=== PATIENT | female | born 1955 | race African-American/Black ===

== ENCOUNTER 2020-12-13 15:43 | Inpatient (IN) | payer MEDICAID, MEDICARE ==
[~2020-12-13] VITALS: Ht 160 cm; Wt 182.4 kg
[2020-12-13 15:48] VITALS: BP_SYST 142
[2020-12-13] MEDS ORDERED: MORPHINE 2 MG/ML INJ. SYRINGE IVP ONE (17:45)
[2020-12-13 19:54] LABS: BASOPHILS % (AUTO) 0.5 % (0.0-2.0); EOSINOPHILS # (AUTO) 0.1 K/uL (0.0-0.4); EOSINOPHILS % (AUTO) 1.5 % (0.0-4.0); HEMATOCRIT 29.9 % (36-48); HEMOGLOBIN 9.5 g/dL (12.0-16.0); LYMPHOCYTES # (AUTO) 0.2 K/uL (1.0-5.5); LYMPHOCYTES % (AUTO) 3.1 % (20.5-51.5); MEAN CORPUSCULAR HEMOGLOBIN 26 pg (27-31); MEAN CORPUSCULAR HGB CONC 32 % (32-36); MEAN CORPUSCULAR VOLUME 83 fL (79.0-98.0); MONOCYTES # (AUTO) 0.7 K/uL (0.0-1.0); NEUTROPHILS # (AUTO) 6.6 K/uL (1.8-7.7); NEUTROPHILS % (AUTO) 85.9 % (40.0-70.0); PLATELET COUNT (AUTO) 241 K/uL (130-430); RED BLOOD CELL COUNT(AUTO) 3.63 MIL/uL (4.2-6.2); RED CELL DISTRIBUTION WIDTH 21.3 % (9.0-15.0); WHITE BLOOD COUNT (AUTO) 7.7 K/uL (4.8-10.8)
[2020-12-13 20:15] LABS: ANION GAP 5 (5-15); CALCIUM 9.5 mg/dL (8.4-11.0); CHLORIDE 100 mmol/L (98-107); CREATININE 1.16 mg/dL (0.55-1.30); GLUCOSE 104 mg/dL (70-99); SODIUM SERUM 145 mmol/L (136-145); UREA NITROGEN, BLOOD 16 mg/dL (8-21)
[2020-12-13 20:18] LABS: POTASSIUM 2.9 mmol/L (3.5-5.1)
[2020-12-13 20:19] LABS: GFR AFRICAN AMERICAN 60 mL/min (>90)
[2020-12-13] MEDS ORDERED: KCL 20 mEq in 100 mL (PREMIX) 100 ML IV ONE (20:30)
[2020-12-13 20:31] LABS: ALANINE AMINOTRANSFERASE 8 U/L (12-78); ALBUMIN 2.9 g/dL (3.4-4.8); ASPARTATE AMINOTRANSFERASE 12 U/L (10-37); TOTAL BILIRUBIN 1.4 mg/dL (0.0-1.0)
[2020-12-13 20:32] LABS: LIPASE 36 U/L (73-393)
[2020-12-13] MEDS ORDERED: FURO-149 PO (21:46)
[2020-12-13] MEDS ORDERED: HYDR-3917 PO (21:46)
[2020-12-13] MEDS ORDERED: HYDR10SY11 PO (21:46)
[2020-12-13] MEDS ORDERED: ONDA4TAB5 PO (21:46)
[2020-12-13] MEDS ORDERED: LIP40 PO (21:46)
[2020-12-13] MEDS ORDERED: METO25TA3 PO (21:46)
[2020-12-13] MEDS ORDERED: OSCD500 PO (21:46)
[2020-12-13] MEDS ORDERED: ANT30 PO (21:46)
[2020-12-13] MEDS ORDERED: RIVA20TA PO (21:46)
[2020-12-13] MEDS ORDERED: PANT20TA2 PO (21:46)
[2020-12-13] MEDS ORDERED: SYN50 PO (21:46)
[2020-12-13] MEDS ORDERED: POTASSIUM CHLORIDE 20 MEQ TAB.PRT.SR PO ONE (22:30)
[2020-12-13] MEDS ORDERED: VANCOMYCIN HCL 1,500 MG in NS 500 ML IV ONE (23:15)
[2020-12-13] MEDS: D5/0.45 NS 1,000 ML IV SCH (23:15)
[2020-12-14 00:38] LABS: INR 1.6 (0.8-1.2)
[2020-12-14 00:40] LABS: PROTHROMBIN TIME 16.4 SECS (9.5-12.5)
[2020-12-14] MEDS ORDERED: VANCOMYCIN HCL 1000 MG/VIAL IV ONE (01:07)
[2020-12-14 02:55] VITALS: BP_SYST 110
[2020-12-14] MEDS ORDERED: BENZOCAINE/MENTHOL 1 EACH LOZENGE MM PRN (04:00)
[2020-12-14] MEDS ORDERED: NALOXONE HCL 0.4 MG/ML AMP (NARCAN) IVP PRN (04:00)
[2020-12-14] MEDS ORDERED: PIPERACILLIN/TAZOBACTAM 3.375 GM/VIAL (ZOSYN) IV ONE (05:38)
[2020-12-14] MEDS ORDERED: PIPERACILLIN/TAZO 3.375 GM in NS 50 ML IV ONE (06:00)
[2020-12-14 07:11] LABS: BASOPHILS % (AUTO) 0.6 % (0.0-2.0); EOSINOPHILS # (AUTO) 0.1 K/uL (0.0-0.4); EOSINOPHILS % (AUTO) 1.1 % (0.0-4.0); HEMATOCRIT 31.4 % (36-48); LYMPHOCYTES # (AUTO) 0.2 K/uL (1.0-5.5); LYMPHOCYTES % (AUTO) 2.3 % (20.5-51.5); MEAN CORPUSCULAR HEMOGLOBIN 26 pg (27-31); MEAN CORPUSCULAR HGB CONC 32 % (32-36); MEAN CORPUSCULAR VOLUME 82 fL (79.0-98.0); MONOCYTES # (AUTO) 0.7 K/uL (0.0-1.0); MONOCYTES % (AUTO) 8.1 % (1.7-9.3); NEUTROPHILS # (AUTO) 7.3 K/uL (1.8-7.7); NEUTROPHILS % (AUTO) 87.9 % (40.0-70.0); PLATELET COUNT (AUTO) 229 K/uL (130-430); RED BLOOD CELL COUNT(AUTO) 3.85 MIL/uL (4.2-6.2); RED CELL DISTRIBUTION WIDTH 21.4 % (9.0-15.0); WHITE BLOOD COUNT (AUTO) 8.4 K/uL (4.8-10.8)
[2020-12-14 08:15] LABS: ALBUMIN 2.7 g/dL (3.4-4.8); CALCIUM 9.3 mg/dL (8.4-11.0); CREATININE 1.07 mg/dL (0.55-1.30); THYROID STIMULATING HORMONE 2.31 uIu/mL (0.36-3.74); TOTAL BILIRUBIN 1.5 mg/dL (0.0-1.0)
[2020-12-14] MEDS ORDERED: DIATR MEGLU/DIATRIZ SOD 30 ML SOLUTION PO ONE (09:51)
[2020-12-14] MEDS ORDERED: methylPREDNISolone SOD SUCC 500 MG/VIAL (Solu-MEDROL) IV ONE (11:00)
[2020-12-14] MEDS ORDERED: ALBUMIN HUMAN 25% 200 ML IV ONE (11:00)
[2020-12-14] MEDS ORDERED: METHYLPREDNISOLONE SOD SUCC IV ONE (11:15)
[2020-12-14] MEDS ORDERED: NS IV ONE (11:15)
[2020-12-14 12:44] VITALS: BP_SYST 111
[2020-12-14] MEDS: VANCOMYCIN HCL 1,500 MG in NS 250 ML IV SCH ×2 (15:51→23:13)
[2020-12-14 16:46] VITALS: BP_SYST 137
[2020-12-14] MEDS: LEVOFLOXACIN IN DEXTROSE 5 % 100 ML IV SCH (18:09)
[2020-12-14] MEDS: D5/0.45 NS 1,000 ML IV SCH (19:15)
[2020-12-14 20:30] VITALS: BP_SYST 106
[2020-12-14] MEDS ORDERED: POTASSIUM CHLORIDE 20 MEQ TAB.PRT.SR PO ONE (23:00)
[2020-12-14] MEDS ORDERED: POTASSIUM CHLORIDE 20 MEQ TAB.PRT.SR ONE (23:28)
[2020-12-15 00:29] VITALS: BP_SYST 112; BP_SYST 79
[2020-12-15 08:00] VITALS: BP_SYST 110
[2020-12-15] MEDS ORDERED: POTASSIUM CHLORIDE 20 MEQ/PKT PACKET PO ONE (09:15)
[2020-12-15] MEDS ORDERED: MAG-AL HYDROX/SIMETH 30 ML UDC PO PRN (12:00)
[2020-12-15 12:33] VITALS: BP_SYST 110
[2020-12-15] MEDS: METOPROLOL TARTRATE 25 MG TABLET PO SCH ×2 (14:34→20:09)
[2020-12-15] MEDS: VANCOMYCIN HCL 1,500 MG in NS 250 ML IV SCH ×2 (14:35→22:57)
[2020-12-15] MEDS: D5/0.45 NS 1,000 ML IV SCH (15:15)
[2020-12-15 16:27] VITALS: BP_SYST 114
[2020-12-15] MEDS: LEVOFLOXACIN IN DEXTROSE 5 % 100 ML IV SCH (17:25)
[2020-12-15 20:07] VITALS: BP_SYST 91
[2020-12-15] MEDS: ATORVASTATIN 20 MG TABLET PO SCH (20:09)
[2020-12-15] MEDS: POTASSIUM CHLORIDE 20 MEQ/PKT PACKET PO SCH (20:09)
[2020-12-15] MEDS: RIVAROXABAN 10 MG TABLET PO SCH (20:11)
[2020-12-15] MEDS: ONDANSETRON 4 MG ODT TAB PO PRN (23:06)
[2020-12-15 23:19] VITALS: BP_SYST 107
[2020-12-15] MEDS: DIPHENHYDRAMINE INJ 50 MG/ML VIAL IVP PRN (23:19)
[2020-12-16] MEDS: MORPHINE 2 MG/ML INJ. SYRINGE IVP PRN (03:05)
[2020-12-16 04:30] VITALS: BP_SYST 124
[2020-12-16] MEDS: LEVOTHYROXINE SODIUM 0.05 MG TABLET PO SCH (07:01)
[2020-12-16 08:00] VITALS: BP_SYST 103
[2020-12-16 08:57] LABS: BASOPHILS % (AUTO) 0.3 % (0.0-2.0); EOSINOPHILS % (AUTO) 0.1 % (0.0-4.0); HEMATOCRIT 27.3 % (36-48); HEMOGLOBIN 8.8 g/dL (12.0-16.0); LYMPHOCYTES # (AUTO) 0.2 K/uL (1.0-5.5); LYMPHOCYTES % (AUTO) 2.1 % (20.5-51.5); MEAN CORPUSCULAR HEMOGLOBIN 26 pg (27-31); MEAN CORPUSCULAR HGB CONC 32 % (32-36); MEAN CORPUSCULAR VOLUME 80 fL (79.0-98.0); MONOCYTES # (AUTO) 0.6 K/uL (0.0-1.0); MONOCYTES % (AUTO) 7.1 % (1.7-9.3); NEUTROPHILS # (AUTO) 7.7 K/uL (1.8-7.7); NEUTROPHILS % (AUTO) 90.4 % (40.0-70.0); PLATELET COUNT (AUTO) 308 K/uL (130-430); RED CELL DISTRIBUTION WIDTH 21.4 % (9.0-15.0); WHITE BLOOD COUNT (AUTO) 8.6 K/uL (4.8-10.8)
[2020-12-16] MEDS: METOPROLOL TARTRATE 25 MG TABLET PO SCH ×2 (09:00→22:01)
[2020-12-16] MEDS: POTASSIUM CHLORIDE 20 MEQ/PKT PACKET PO SCH ×2 (09:25→21:55)
[2020-12-16] MEDS: FUROSEMIDE 40 MG TABLET PO SCH (09:25)
[2020-12-16] MEDS: CALCIUM CARBONATE/VITAMIN D3 1 TAB TABLET PO SCH (09:25)
[2020-12-16 09:35] LABS: ALBUMIN 2.8 g/dL (3.4-4.8); CALCIUM 9.5 mg/dL (8.4-11.0); CREATININE 1.54 mg/dL (0.55-1.30); POTASSIUM 3.7 mmol/L (3.5-5.1); TOTAL BILIRUBIN 1.4 mg/dL (0.0-1.0)
[2020-12-16] MEDS: VANCOMYCIN HCL 1,500 MG in NS 250 ML IV SCH (11:19)
[2020-12-16 11:37] VITALS: BP_SYST 117
[2020-12-16 11:47] VITALS: BP_SYST 105
[2020-12-16 15:52] VITALS: BP_SYST 112
[2020-12-16] MEDS: LEVOFLOXACIN IN DEXTROSE 5 % 100 ML IV SCH (18:11)
[2020-12-16] MEDS: D5/0.45 NS 1,000 ML IV SCH (18:11)
[2020-12-16 20:41] VITALS: BP_SYST 115
[2020-12-16] MEDS: ATORVASTATIN 20 MG TABLET PO SCH (21:55)
[2020-12-16] MEDS: RIVAROXABAN 10 MG TABLET PO SCH (22:02)
[2020-12-17] MEDS: VANCOMYCIN HCL 1,500 MG in NS 250 ML IV SCH ×2 (01:25→10:23)
[2020-12-17 02:38] VITALS: BP_SYST 94
[2020-12-17 05:28] VITALS: BP_SYST 97
[2020-12-17] MEDS: LEVOTHYROXINE SODIUM 0.05 MG TABLET PO SCH (06:11)
[2020-12-17] MEDS: D5/0.45 NS 1,000 ML IV SCH (06:36)
[2020-12-17 08:00] VITALS: BP_SYST 100
[2020-12-17 08:06] LABS: CEA 2.5 ng/mL (0.0-4.7)
[2020-12-17] MEDS: POTASSIUM CHLORIDE 20 MEQ/PKT PACKET PO SCH ×2 (10:18→21:37)
[2020-12-17] MEDS: FUROSEMIDE 40 MG TABLET PO SCH (10:20)
[2020-12-17] MEDS: METOPROLOL TARTRATE 25 MG TABLET PO SCH ×2 (10:21→21:37)
[2020-12-17] MEDS: CALCIUM CARBONATE/VITAMIN D3 1 TAB TABLET PO SCH (10:22)
[2020-12-17 12:00] VITALS: BP_SYST 102
[2020-12-17 16:01] VITALS: BP_SYST 105
[2020-12-17] MEDS: LEVOFLOXACIN IN DEXTROSE 5 % 100 ML IV SCH (16:57)
[2020-12-17] MEDS: ATORVASTATIN 20 MG TABLET PO SCH (21:37)
[2020-12-17] MEDS: RIVAROXABAN 10 MG TABLET PO SCH (21:40)
[2020-12-17 21:51] VITALS: BP_SYST 114
[2020-12-18] VITALS: BP_SYST 133
[2020-12-18] MEDS: MORPHINE 2 MG/ML INJ. SYRINGE IVP PRN ×2 (01:59→17:51)
[2020-12-18] MEDS: D5/0.45 NS 1,000 ML IV SCH ×3 (04:53→21:20)
[2020-12-18] MEDS: LEVOTHYROXINE SODIUM 0.05 MG TABLET PO SCH (06:37)
[2020-12-18 08:00] VITALS: BP_SYST 107
[2020-12-18] MEDS: CALCIUM CARBONATE/VITAMIN D3 1 TAB TABLET PO SCH (09:16)
[2020-12-18] MEDS: POTASSIUM CHLORIDE 20 MEQ/PKT PACKET PO SCH ×2 (09:16→21:18)
[2020-12-18] MEDS: FUROSEMIDE 40 MG TABLET PO SCH (09:17)
[2020-12-18] MEDS: METOPROLOL TARTRATE 25 MG TABLET PO SCH ×2 (09:17→21:19)
[2020-12-18 09:23] LABS: BASOPHILS % (AUTO) 0.3 % (0.0-2.0); EOSINOPHILS % (AUTO) 0.6 % (0.0-4.0); HEMATOCRIT 25.9 % (36-48); HEMOGLOBIN 8.3 g/dL (12.0-16.0); LYMPHOCYTES # (AUTO) 0.1 K/uL (1.0-5.5); LYMPHOCYTES % (AUTO) 1.2 % (20.5-51.5); MEAN CORPUSCULAR HEMOGLOBIN 26 pg (27-31); MEAN CORPUSCULAR HGB CONC 32 % (32-36); MEAN CORPUSCULAR VOLUME 80 fL (79.0-98.0); MONOCYTES # (AUTO) 0.9 K/uL (0.0-1.0); MONOCYTES % (AUTO) 14.1 % (1.7-9.3); NEUTROPHILS # (AUTO) 5.2 K/uL (1.8-7.7); NEUTROPHILS % (AUTO) 83.8 % (40.0-70.0); PLATELET COUNT (AUTO) 294 K/uL (130-430); RED BLOOD CELL COUNT(AUTO) 3.23 MIL/uL (4.2-6.2); RED CELL DISTRIBUTION WIDTH 21.2 % (9.0-15.0); WHITE BLOOD COUNT (AUTO) 6.3 K/uL (4.8-10.8)
[2020-12-18 09:29] LABS: ALBUMIN 2.5 g/dL (3.4-4.8); CALCIUM 9.4 mg/dL (8.4-11.0); CREATININE 2.27 mg/dL (0.55-1.30); POTASSIUM 4.4 mmol/L (3.5-5.1); TOTAL BILIRUBIN 1.3 mg/dL (0.0-1.0)
[2020-12-18] MEDS ORDERED: NS 500 ML IV ONE (11:15)
[2020-12-18] MEDS: ONDANSETRON 4 MG ODT TAB PO PRN (12:48)
[2020-12-18 13:13] VITALS: BP_SYST 106
[2020-12-18] MEDS: LEVOFLOXACIN IN DEXTROSE 5 % 100 ML IV SCH (17:48)
[2020-12-18 18:22] VITALS: BP_SYST 107
[2020-12-18] MEDS: ATORVASTATIN 20 MG TABLET PO SCH (21:18)
[2020-12-18] MEDS: RIVAROXABAN 10 MG TABLET PO SCH (21:22)
[2020-12-18 22:00] VITALS: BP_SYST 112
[2020-12-19 00:57] VITALS: BP_SYST 108
[2020-12-19] MEDS ORDERED: LEVOFLOXACIN IN DEXTROSE 5 % 100 ML IV SCH (02:00)
[2020-12-19] MEDS: D5/0.45 NS 1,000 ML IV SCH ×3 (02:36→21:07)
[2020-12-19] MEDS: LEVOTHYROXINE SODIUM 0.05 MG TABLET PO SCH (06:07)
[2020-12-19 08:31] LABS: ALBUMIN 2.6 g/dL (3.4-4.8); CALCIUM 9.3 mg/dL (8.4-11.0); CREATININE 2.77 mg/dL (0.55-1.30); POTASSIUM 4.4 mmol/L (3.5-5.1); TOTAL BILIRUBIN 1.3 mg/dL (0.0-1.0)
[2020-12-19] MEDS: POTASSIUM CHLORIDE 20 MEQ/PKT PACKET PO SCH ×2 (09:57→21:49)
[2020-12-19] MEDS: METOPROLOL TARTRATE 25 MG TABLET PO SCH ×2 (10:08→21:49)
[2020-12-19] MEDS: CALCIUM CARBONATE/VITAMIN D3 1 TAB TABLET PO SCH (10:10)
[2020-12-19 12:14] VITALS: BP_SYST 106
[2020-12-19] MEDS ORDERED: GOLYTELY / COLYTE SOLUTION 4 LITERS PO ONE (16:00)
[2020-12-19 16:38] VITALS: BP_SYST 96
[2020-12-19 20:00] VITALS: BP_SYST 115
[2020-12-19] MEDS: LEVOFLOXACIN IN DEXTROSE 5 % 100 ML IV SCH (21:06)
[2020-12-19] MEDS: MORPHINE 2 MG/ML INJ. SYRINGE IVP PRN (21:16)
[2020-12-19] MEDS: RIVAROXABAN 10 MG TABLET PO SCH (21:48)
[2020-12-19] MEDS: ATORVASTATIN 20 MG TABLET PO SCH (21:48)
[2020-12-19] MEDS: DIPHENHYDRAMINE INJ 50 MG/ML VIAL IVP PRN (23:38)
[2020-12-20] VITALS: BP_SYST 118
[2020-12-20] MEDS: D5/0.45 NS 1,000 ML IV SCH ×4 (00:30→20:51)
[2020-12-20] MEDS: LEVOTHYROXINE SODIUM 0.05 MG TABLET PO SCH (06:20)
[2020-12-20 08:00] VITALS: BP_SYST 106
[2020-12-20] MEDS: CALCIUM CARBONATE/VITAMIN D3 1 TAB TABLET PO SCH (08:33)
[2020-12-20] MEDS: METOPROLOL TARTRATE 25 MG TABLET PO SCH ×2 (08:40→20:52)
[2020-12-20] MEDS: POTASSIUM CHLORIDE 20 MEQ/PKT PACKET PO SCH ×2 (08:41→20:52)
[2020-12-20 12:24] VITALS: BP_SYST 130
[2020-12-20] MEDS: LEVOFLOXACIN IN DEXTROSE 5 % 100 ML IV SCH (16:48)
[2020-12-20] MEDS ORDERED: BISACODYL 5 MG TABLET.DR (DULCOLAX) PO ONE (17:00)
[2020-12-20] MEDS ORDERED: TAMSULOSIN HCL 0.4 MG CAP PO ONE (17:15)
[2020-12-20] MEDS ORDERED: GOLYTELY / COLYTE SOLUTION 4 LITERS PO ONE (18:00)
[2020-12-20 20:00] VITALS: BP_SYST 117
[2020-12-20] MEDS: ATORVASTATIN 20 MG TABLET PO SCH (20:52)
[2020-12-20] MEDS: RIVAROXABAN 10 MG TABLET PO SCH (20:53)
[2020-12-21] VITALS (28 sets, daily range): BP systolic 89–164
[2020-12-21] MEDS: DIPHENHYDRAMINE INJ 50 MG/ML VIAL IVP PRN (00:20)
[2020-12-21] MEDS ORDERED: NOREPINEPHRINE 4 MG/4 ML VIAL IV ONE ×2 (04:44→21:42)
[2020-12-21 05:07] LABS: INR 1.7 (0.8-1.2); PROTHROMBIN TIME 17.3 SECS (9.5-12.5)
[2020-12-21 05:21] LABS: HEMATOCRIT 23.1 % (36-48); RED BLOOD CELL COUNT(AUTO) 2.83 MIL/uL (4.2-6.2); WHITE BLOOD COUNT (AUTO) 10.2 K/uL (4.8-10.8)
[2020-12-21 05:22] LABS: MEAN CORPUSCULAR HEMOGLOBIN 26 pg (27-31); MEAN CORPUSCULAR HGB CONC 32 % (32-36); MEAN CORPUSCULAR VOLUME 82 fL (79.0-98.0); PLATELET COUNT (AUTO) 370 K/uL (130-430); RED CELL DISTRIBUTION WIDTH 21.1 % (9.0-15.0)
[2020-12-21 05:23] LABS: BASOPHILS # (AUTO) 0.1 K/uL (0.0-0.2); BASOPHILS % (AUTO) 0.6 % (0.0-2.0); EOSINOPHILS % (AUTO) 0.5 % (0.0-4.0); LYMPHOCYTES % (AUTO) 9.6 % (20.5-51.5); MONOCYTES # (AUTO) 0.5 K/uL (0.0-1.0); MONOCYTES % (AUTO) 5.1 % (1.7-9.3); NEUTROPHILS # (AUTO) 8.6 K/uL (1.8-7.7); NEUTROPHILS % (AUTO) 84.2 % (40.0-70.0)
[2020-12-21 05:25] LABS: HEMOGLOBIN 7.3 g/dL (12.0-16.0)
[2020-12-21] MEDS: D5/0.45 NS 1,000 ML IV SCH (05:25)
[2020-12-21] MEDS: LEVOTHYROXINE SODIUM 0.05 MG TABLET PO SCH (07:00)
[2020-12-21] MEDS: PROPOFOL DRIP 100 ML IV PRN ×3 (07:15→17:25)
[2020-12-21] MEDS ORDERED: NS 500 ML IV ONE (08:15)
[2020-12-21] MEDS ORDERED: ALBUMIN HUMAN 25% 100 ML IV ONE (08:15)
[2020-12-21] MEDS ORDERED: CEFEPIME 2 GM in D5W 100 ML IV SCH (09:00)
[2020-12-21] MEDS: CALCIUM CARBONATE/VITAMIN D3 1 TAB TABLET PO SCH (09:00)
[2020-12-21] MEDS: POTASSIUM CHLORIDE 20 MEQ/PKT PACKET PO SCH ×2 (09:00→21:00)
[2020-12-21] MEDS: METOPROLOL TARTRATE 25 MG TABLET PO SCH ×2 (09:00→21:00)
[2020-12-21] MEDS: TAMSULOSIN HCL 0.4 MG CAP PO SCH (09:00)
[2020-12-21] MEDS: CEFEPIME 1 GM in D5W 50 ML IV SCH ×2 (09:14→21:22)
[2020-12-21] MEDS: NACL 0.9% 1,000 ML IV SCH ×3 (09:15→23:49)
[2020-12-21] MEDS: NOREPINEPHRINE BITARTRATE 4 MG in D5W 246 ML IV PRN ×2 (09:18→14:42)
[2020-12-21 11:01] LABS: ANION GAP 17 (5-15); CHLORIDE 99 mmol/L (98-107); CREATININE 3.35 mg/dL (0.55-1.30); GLUCOSE 171 mg/dL (70-99); POTASSIUM 4.1 mmol/L (3.5-5.1); SODIUM SERUM 144 mmol/L (136-145); UREA NITROGEN, BLOOD 36 mg/dL (8-21)
[2020-12-21 11:06] LABS: ALANINE AMINOTRANSFERASE 16 U/L (12-78); ALBUMIN 2.6 g/dL (3.4-4.8); ASPARTATE AMINOTRANSFERASE 45 U/L (10-37); TOTAL BILIRUBIN 1.2 mg/dL (0.0-1.0)
[2020-12-21 11:10] LABS: GFR AFRICAN AMERICAN 18 mL/min (>90)
[2020-12-21 12:06] LABS: CKMB RELATIVE INDEX 0.4 (0.0-2.9); CREATINE KINASE MB 1.1 ng/mL (0-3.6)
[2020-12-21] MEDS: ATORVASTATIN 20 MG TABLET PO SCH (21:00)
[2020-12-21] MEDS: RIVAROXABAN 10 MG TABLET PO SCH (21:00)
[2020-12-22] VITALS (28 sets, daily range): BP systolic 86–152
[2020-12-22] MEDS: PROPOFOL DRIP 100 ML IV PRN ×2 (05:14→12:33)
[2020-12-22 05:41] LABS: BASOPHILS # (AUTO) 0.1 K/uL (0.0-0.2); BASOPHILS % (AUTO) 1.2 % (0.0-2.0); EOSINOPHILS % (AUTO) 0.2 % (0.0-4.0); HEMATOCRIT 23.5 % (36-48); LYMPHOCYTES # (AUTO) 0.1 K/uL (1.0-5.5); LYMPHOCYTES % (AUTO) 0.8 % (20.5-51.5); MEAN CORPUSCULAR HEMOGLOBIN 26 pg (27-31); MEAN CORPUSCULAR HGB CONC 34 % (32-36); MEAN CORPUSCULAR VOLUME 78 fL (79.0-98.0); MONOCYTES # (AUTO) 0.7 K/uL (0.0-1.0); MONOCYTES % (AUTO) 5.7 % (1.7-9.3); NEUTROPHILS # (AUTO) 11.4 K/uL (1.8-7.7); NEUTROPHILS % (AUTO) 92.1 % (40.0-70.0); PLATELET COUNT (AUTO) 326 K/uL (130-430); RED BLOOD CELL COUNT(AUTO) 3.01 MIL/uL (4.2-6.2); RED CELL DISTRIBUTION WIDTH 20.1 % (9.0-15.0); WHITE BLOOD COUNT (AUTO) 12.4 K/uL (4.8-10.8)
[2020-12-22] MEDS: NACL 0.9% 1,000 ML IV SCH ×3 (06:05→17:41)
[2020-12-22 07:18] LABS: ALANINE AMINOTRANSFERASE 22 U/L (12-78); ALBUMIN 2.6 g/dL (3.4-4.8); ANION GAP 14 (5-15); ASPARTATE AMINOTRANSFERASE 53 U/L (10-37); CALCIUM 8.9 mg/dL (8.4-11.0); CHLORIDE 97 mmol/L (98-107); GLUCOSE 123 mg/dL (70-99); POTASSIUM 4.2 mmol/L (3.5-5.1); SODIUM SERUM 138 mmol/L (136-145); TOTAL BILIRUBIN 2.8 mg/dL (0.0-1.0); UREA NITROGEN, BLOOD 36 mg/dL (8-21)
[2020-12-22 08:18] LABS: GFR AFRICAN AMERICAN 19 mL/min (>90)
[2020-12-22] MEDS: METOPROLOL TARTRATE 25 MG TABLET PO SCH ×2 (09:00→21:00)
[2020-12-22] MEDS: TAMSULOSIN HCL 0.4 MG CAP PO SCH (10:15)
[2020-12-22] MEDS: LEVOTHYROXINE SODIUM 0.05 MG TABLET PO SCH (10:15)
[2020-12-22] MEDS: POTASSIUM CHLORIDE 20 MEQ/PKT PACKET PO SCH ×2 (10:15→21:00)
[2020-12-22] MEDS: CALCIUM CARBONATE/VITAMIN D3 1 TAB TABLET PO SCH (10:17)
[2020-12-22 10:36] LABS: CHOLESTEROL < 50 mg/dL (<200); HDL CHOLESTEROL 11 mg/dL (>55); LDL CHOLESTEROL 23 mg/dL (<100); TRIGLYCERIDES 430 mg/dL (30-150)
[2020-12-22] MEDS ORDERED: METOPROLOL TARTRATE 5 MG/5 ML AMPUL ONE (11:49)
[2020-12-22] MEDS ORDERED: NALOXONE HCL 0.4 MG/ML AMP (NARCAN) IVP PRN (14:15)
[2020-12-22] MEDS ORDERED: MIDAZOLAM HCL IN 0.9 % NACL/PF 50 ML IV SCH (14:15)
[2020-12-22] MEDS ORDERED: FUROSEMIDE 40 MG/4 ML VIAL IVP ONE (14:30)
[2020-12-22] MEDS: MORPHINE SULFATE IN 0.9 % NACL 100 ML IV SCH (15:39)
[2020-12-22] MEDS: MIDAZOLAM IN NACL,ISO-OSMOT/PF 100 ML IV PRN (15:47)
[2020-12-22] MEDS: METOPROLOL TARTRATE 5 MG/5 ML AMPUL IVP PRN (18:56)
[2020-12-22] MEDS: RIVAROXABAN 10 MG TABLET PO SCH (21:00)
[2020-12-22] MEDS: ATORVASTATIN 20 MG TABLET PO SCH (21:00)
[2020-12-22] MEDS: CEFEPIME 1 GM in D5W 50 ML IV SCH (21:38)
[2020-12-22] MEDS: LINEZOLID 300 ML IV SCH (21:39)
[2020-12-23] VITALS (34 sets, daily range): BP systolic 91–130
[2020-12-23] MEDS: METOPROLOL TARTRATE 5 MG/5 ML AMPUL IVP PRN (00:36)
[2020-12-23] MEDS: NACL 0.9% 1,000 ML IV SCH ×3 (01:33→13:46)
[2020-12-23] MEDS: LEVOTHYROXINE SODIUM 0.05 MG TABLET PO SCH (07:00)
[2020-12-23 07:06] LABS: BASOPHILS % (AUTO) 0.2 % (0.0-2.0); EOSINOPHILS # (AUTO) 0.1 K/uL (0.0-0.4); EOSINOPHILS % (AUTO) 0.6 % (0.0-4.0); HEMATOCRIT 23.6 % (36-48); LYMPHOCYTES # (AUTO) 0.2 K/uL (1.0-5.5); LYMPHOCYTES % (AUTO) 1.6 % (20.5-51.5); MEAN CORPUSCULAR HEMOGLOBIN 26 pg (27-31); MEAN CORPUSCULAR HGB CONC 34 % (32-36); MEAN CORPUSCULAR VOLUME 78 fL (79.0-98.0); MONOCYTES # (AUTO) 0.4 K/uL (0.0-1.0); MONOCYTES % (AUTO) 3.1 % (1.7-9.3); NEUTROPHILS # (AUTO) 12.6 K/uL (1.8-7.7); NEUTROPHILS % (AUTO) 94.5 % (40.0-70.0); PLATELET COUNT (AUTO) 291 K/uL (130-430); RED BLOOD CELL COUNT(AUTO) 3.02 MIL/uL (4.2-6.2); RED CELL DISTRIBUTION WIDTH 20.6 % (9.0-15.0); WHITE BLOOD COUNT (AUTO) 13.3 K/uL (4.8-10.8)
[2020-12-23 08:33] LABS: ALBUMIN 2.3 g/dL (3.4-4.8); CALCIUM 9.1 mg/dL (8.4-11.0); CREATININE 3.52 mg/dL (0.55-1.30); PHOSPHORUS 3.4 mg/dL (2.7-4.5); POTASSIUM 3.9 mmol/L (3.5-5.1)
[2020-12-23] MEDS: POLYETHYLENE GLYCOL 3350, 17 GM/ POWD.PACK PO SCH (08:36)
[2020-12-23] MEDS: CALCIUM CARBONATE/VITAMIN D3 1 TAB TABLET PO SCH (08:36)
[2020-12-23] MEDS: TAMSULOSIN HCL 0.4 MG CAP PO SCH (08:36)
[2020-12-23] MEDS: POTASSIUM CHLORIDE 20 MEQ/PKT PACKET PO SCH (08:36)
[2020-12-23] MEDS: LINEZOLID 300 ML IV SCH (08:37)
[2020-12-23] MEDS: METOPROLOL TARTRATE 25 MG TABLET PO SCH (08:37)
[2020-12-23 10:44] LABS: BILIRUBIN,URINE 1+ (NEGATIVE); BLOOD, URINE 3+ (NEGATIVE); CLARITY/URINE CLEAR (CLEAR); COLOR,URINE YELLOW (YELLOW); GLUCOSE,URINE TRACE (NEGATIVE); KETONES,URINE NEGATIVE (NEGATIVE); LEUKOCYTE ESTERASE ,URINE NEGATIVE (NEGATIVE); NITRITE, URINE NEGATIVE (NEGATIVE); PROTEIN URINE 3+ (NEGATIVE); UROBILINOGEN,URINE 0.2 (0.2-1.0)
[2020-12-23 12:22] LABS: URINE SODIUM, RANDOM 122 mmol/L (40-220)
[2020-12-23 12:39] LABS: RBC,URINE 20-50 /HPF (0-3); WBC,URINE 0-3 /HPF (0-3)
[2020-12-23 12:40] LABS: BACTERIA,URINE RARE /HPF (None Seen)
[2020-12-23] MEDS: MIDAZOLAM IN NACL,ISO-OSMOT/PF 100 ML IV PRN (12:45)
[2020-12-23] MEDS ORDERED: HEPARIN SODIUM,PORCINE 5,000 UNITS/ML VIAL ONE ×2 (14:49→23:28)
[2020-12-23] MEDS: NOREPINEPHRINE BITARTRATE 8 MG in NS 242 ML IV PRN (15:20)
[2020-12-23] MEDS ORDERED: HEPARIN SODIUM, PORCINE 10,000 UNITS/ 10 ML VIAL MC ONE (21:50)
[2020-12-23] MEDS ORDERED: HEPARIN IV FLUSH 1 UNIT/ML PF 6ML SYRINGE IV ONE ×2 (23:15)
[2020-12-24] VITALS (36 sets, daily range): BP systolic 91–152
[2020-12-24] MEDS: NACL 0.9% 1,000 ML IV SCH ×2 (01:46→02:55)
[2020-12-24] MEDS: CEFEPIME 1 GM in D5W 50 ML IV SCH ×2 (01:46→21:38)
[2020-12-24] MEDS: LINEZOLID 300 ML IV SCH ×3 (01:47→21:38)
[2020-12-24] MEDS: POTASSIUM CHLORIDE 20 MEQ/PKT PACKET PO SCH ×3 (01:47→21:39)
[2020-12-24] MEDS: ATORVASTATIN 20 MG TABLET PO SCH ×2 (01:48→21:39)
[2020-12-24] MEDS: METOPROLOL TARTRATE 25 MG TABLET PO SCH ×3 (01:48→21:41)
[2020-12-24] MEDS: POLYETHYLENE GLYCOL 3350, 17 GM/ POWD.PACK PO SCH ×3 (01:48→21:41)
[2020-12-24] MEDS: RIVAROXABAN 10 MG TABLET PO SCH ×2 (01:50→21:42)
[2020-12-24] MEDS: MORPHINE SULFATE IN 0.9 % NACL 100 ML IV SCH (01:54)
[2020-12-24 06:49] LABS: BASOPHILS % (AUTO) 0.1 % (0.0-2.0); EOSINOPHILS # (AUTO) 0.2 K/uL (0.0-0.4); HEMATOCRIT 24.8 % (36-48); HEMOGLOBIN 8.3 g/dL (12.0-16.0); LYMPHOCYTES # (AUTO) 0.1 K/uL (1.0-5.5); LYMPHOCYTES % (AUTO) 0.6 % (20.5-51.5); MEAN CORPUSCULAR HEMOGLOBIN 26 pg (27-31); MEAN CORPUSCULAR HGB CONC 33 % (32-36); MEAN CORPUSCULAR VOLUME 78 fL (79.0-98.0); MONOCYTES # (AUTO) 0.4 K/uL (0.0-1.0); MONOCYTES % (AUTO) 2.3 % (1.7-9.3); NEUTROPHILS # (AUTO) 15.5 K/uL (1.8-7.7); PLATELET COUNT (AUTO) 236 K/uL (130-430); RED CELL DISTRIBUTION WIDTH 20.6 % (9.0-15.0); WHITE BLOOD COUNT (AUTO) 16.1 K/uL (4.8-10.8)
[2020-12-24] MEDS: LEVOTHYROXINE SODIUM 0.05 MG TABLET PO SCH (07:07)
[2020-12-24 07:25] LABS: CREATININE 2.89 mg/dL (0.55-1.30); POTASSIUM 3.6 mmol/L (3.5-5.1); TOTAL BILIRUBIN 3.4 mg/dL (0.0-1.0)
[2020-12-24] MEDS ORDERED: NOREPINEPHRINE 4 MG/4 ML VIAL IV ONE (07:49)
[2020-12-24] MEDS: NOREPINEPHRINE BITARTRATE 8 MG in NS 242 ML IV PRN ×2 (08:10→21:59)
[2020-12-24] MEDS: TAMSULOSIN HCL 0.4 MG CAP PO SCH (08:57)
[2020-12-24] MEDS: CALCIUM CARBONATE/VITAMIN D3 1 TAB TABLET PO SCH (08:58)
[2020-12-24 09:06] LABS: HEPATITIS C VIRUS AB <0.1 s/co ratio (0.0-0.9)
[2020-12-24 13:08] LABS: CANCER AG, 125 99.8 U/mL (0.0-38.1)
[2020-12-25] VITALS (35 sets, daily range): BP systolic 85–137
[2020-12-25] MEDS: LEVOTHYROXINE SODIUM 0.05 MG TABLET PO SCH (06:47)
[2020-12-25] MEDS: TAMSULOSIN HCL 0.4 MG CAP PO SCH (08:28)
[2020-12-25] MEDS: POLYETHYLENE GLYCOL 3350, 17 GM/ POWD.PACK PO SCH ×2 (08:29→21:08)
[2020-12-25] MEDS: POTASSIUM CHLORIDE 20 MEQ/PKT PACKET PO SCH ×2 (08:29→21:07)
[2020-12-25] MEDS: METOPROLOL TARTRATE 25 MG TABLET PO SCH ×2 (08:31→21:09)
[2020-12-25] MEDS: LINEZOLID 300 ML IV SCH ×2 (08:32→21:22)
[2020-12-25] MEDS: CALCIUM CARBONATE/VITAMIN D3 1 TAB TABLET PO SCH (08:40)
[2020-12-25 09:06] LABS: CREATININE, URINE 18.1 mg/dL (Not Estab.)
[2020-12-25 09:18] LABS: BASOPHILS % (AUTO) 0.2 % (0.0-2.0); EOSINOPHILS # (AUTO) 0.2 K/uL (0.0-0.4); HEMATOCRIT 26.3 % (36-48); LYMPHOCYTES # (AUTO) 0.2 K/uL (1.0-5.5); LYMPHOCYTES % (AUTO) 0.9 % (20.5-51.5); MEAN CORPUSCULAR HEMOGLOBIN 26 pg (27-31); MEAN CORPUSCULAR HGB CONC 33 % (32-36); MEAN CORPUSCULAR VOLUME 78 fL (79.0-98.0); MONOCYTES # (AUTO) 0.4 K/uL (0.0-1.0); MONOCYTES % (AUTO) 2.3 % (1.7-9.3); NEUTROPHILS # (AUTO) 16.9 K/uL (1.8-7.7); NEUTROPHILS % (AUTO) 95.6 % (40.0-70.0); PLATELET COUNT (AUTO) 215 K/uL (130-430); RED BLOOD CELL COUNT(AUTO) 3.39 MIL/uL (4.2-6.2); RED CELL DISTRIBUTION WIDTH 20.9 % (9.0-15.0); WHITE BLOOD COUNT (AUTO) 17.7 K/uL (4.8-10.8)
[2020-12-25] MEDS: NACL 0.9% 1,000 ML IV SCH (09:45)
[2020-12-25 10:28] LABS: CREATININE 3.1 mg/dL (0.55-1.30); POTASSIUM 3.8 mmol/L (3.5-5.1)
[2020-12-25] MEDS: NOREPINEPHRINE BITARTRATE 8 MG in NS 242 ML IV PRN (10:55)
[2020-12-25 13:14] LABS: HEMOGLOBIN 8.7 g/dL (12.0-16.0)
[2020-12-25] MEDS ORDERED: ALBUMIN HUMAN 25% 100 ML IV ONE (16:30)
[2020-12-25] MEDS ORDERED: HEPARIN SODIUM,PORCINE 5,000 UNITS/ML VIAL MC ONE (17:15)
[2020-12-25 20:05] LABS: INR 1.4 (0.8-1.2); PROTHROMBIN TIME 14.3 SECS (9.5-12.5)
[2020-12-25] MEDS: CEFEPIME 1 GM in D5W 50 ML IV SCH (21:08)
[2020-12-25] MEDS: ATORVASTATIN 20 MG TABLET PO SCH (21:08)
[2020-12-25] MEDS: RIVAROXABAN 10 MG TABLET PO SCH (21:14)
[2020-12-26] VITALS (24 sets, daily range): BP systolic 85–156
[2020-12-26] MEDS: NACL 0.9% 1,000 ML IV SCH ×2 (00:31→09:45)
[2020-12-26 06:27] LABS: BASOPHILS # (AUTO) 0.1 K/uL (0.0-0.2); BASOPHILS % (AUTO) 0.7 % (0.0-2.0); EOSINOPHILS # (AUTO) 0.6 K/uL (0.0-0.4); HEMOGLOBIN 8.2 g/dL (12.0-16.0); LYMPHOCYTES # (AUTO) 0.4 K/uL (1.0-5.5); LYMPHOCYTES % (AUTO) 2.8 % (20.5-51.5); MEAN CORPUSCULAR HEMOGLOBIN 27 pg (27-31); MEAN CORPUSCULAR HGB CONC 34 % (32-36); MEAN CORPUSCULAR VOLUME 78 fL (79.0-98.0); MONOCYTES # (AUTO) 0.5 K/uL (0.0-1.0); NEUTROPHILS # (AUTO) 14.3 K/uL (1.8-7.7); NEUTROPHILS % (AUTO) 89.5 % (40.0-70.0); PLATELET COUNT (AUTO) 175 K/uL (130-430); RED BLOOD CELL COUNT(AUTO) 3.09 MIL/uL (4.2-6.2); RED CELL DISTRIBUTION WIDTH 21.5 % (9.0-15.0)
[2020-12-26 06:46] LABS: ALBUMIN 2.3 g/dL (3.4-4.8); BILIRUBIN,DIRECT 2.9 mg/dL (0.0-0.3); CREATININE 2.85 mg/dL (0.55-1.30)
[2020-12-26] MEDS: POTASSIUM CHLORIDE 20 MEQ/PKT PACKET PO SCH ×2 (08:36→21:01)
[2020-12-26] MEDS: METOPROLOL TARTRATE 25 MG TABLET PO SCH ×2 (08:36→21:03)
[2020-12-26] MEDS: LEVOTHYROXINE SODIUM 0.05 MG TABLET PO SCH (08:37)
[2020-12-26] MEDS: TAMSULOSIN HCL 0.4 MG CAP PO SCH (08:38)
[2020-12-26] MEDS: CALCIUM CARBONATE/VITAMIN D3 1 TAB TABLET PO SCH (08:39)
[2020-12-26] MEDS: LINEZOLID 300 ML IV SCH ×2 (08:39→21:05)
[2020-12-26 08:55] LABS: TOTAL BILIRUBIN 4.2 mg/dL (0.0-1.0)
[2020-12-26] MEDS: POLYETHYLENE GLYCOL 3350, 17 GM/ POWD.PACK PO SCH ×2 (08:57→21:01)
[2020-12-26] MEDS: NOREPINEPHRINE BITARTRATE 8 MG in NS 242 ML IV PRN (20:31)
[2020-12-26] MEDS: RIVAROXABAN 10 MG TABLET PO SCH (21:02)
[2020-12-26] MEDS: CEFEPIME 1 GM in D5W 50 ML IV SCH (21:04)
[2020-12-26] MEDS: ATORVASTATIN 20 MG TABLET PO SCH (21:07)
[2020-12-27] VITALS (28 sets, daily range): BP systolic 89–136
[2020-12-27 06:17] LABS: BASOPHILS # (AUTO) 0.1 K/uL (0.0-0.2); BASOPHILS % (AUTO) 0.5 % (0.0-2.0); EOSINOPHILS # (AUTO) 0.4 K/uL (0.0-0.4); EOSINOPHILS % (AUTO) 2.6 % (0.0-4.0); HEMATOCRIT 23.6 % (36-48); HEMOGLOBIN 7.7 g/dL (12.0-16.0); LYMPHOCYTES # (AUTO) 0.3 K/uL (1.0-5.5); LYMPHOCYTES % (AUTO) 1.8 % (20.5-51.5); MEAN CORPUSCULAR HEMOGLOBIN 25 pg (27-31); MEAN CORPUSCULAR HGB CONC 33 % (32-36); MEAN CORPUSCULAR VOLUME 78 fL (79.0-98.0); MONOCYTES # (AUTO) 0.5 K/uL (0.0-1.0); MONOCYTES % (AUTO) 3.5 % (1.7-9.3); NEUTROPHILS % (AUTO) 91.6 % (40.0-70.0); PLATELET COUNT (AUTO) 149 K/uL (130-430); RED BLOOD CELL COUNT(AUTO) 3.03 MIL/uL (4.2-6.2); WHITE BLOOD COUNT (AUTO) 14.2 K/uL (4.8-10.8)
[2020-12-27 06:33] LABS: CALCIUM 9.1 mg/dL (8.4-11.0); POTASSIUM 4.1 mmol/L (3.5-5.1)
[2020-12-27] MEDS: NOREPINEPHRINE BITARTRATE 8 MG in NS 242 ML IV PRN ×2 (07:15→18:55)
[2020-12-27] MEDS: POLYETHYLENE GLYCOL 3350, 17 GM/ POWD.PACK PO SCH ×2 (09:05→21:16)
[2020-12-27] MEDS: LINEZOLID 300 ML IV SCH ×2 (09:05→21:17)
[2020-12-27] MEDS: METOPROLOL TARTRATE 25 MG TABLET PO SCH ×2 (09:06→21:16)
[2020-12-27] MEDS: POTASSIUM CHLORIDE 20 MEQ/PKT PACKET PO SCH ×2 (09:06→21:16)
[2020-12-27] MEDS: TAMSULOSIN HCL 0.4 MG CAP PO SCH (09:06)
[2020-12-27] MEDS: LEVOTHYROXINE SODIUM 0.05 MG TABLET PO SCH (09:07)
[2020-12-27] MEDS: CALCIUM CARBONATE/VITAMIN D3 1 TAB TABLET PO SCH (09:09)
[2020-12-27] MEDS: NACL 0.9% 1,000 ML IV SCH ×2 (09:45→18:53)
[2020-12-27] MEDS ORDERED: ALBUMIN HUMAN 25% 100 ML IV ONE (10:22)
[2020-12-27] MEDS ORDERED: HEPARIN SODIUM, PORCINE 10,000 UNITS/ 10 ML VIAL MC ONE (12:30)
[2020-12-27] MEDS: NYSTATIN 15 GM TOPICAL POWDER TP SCH ×2 (13:15→21:20)
[2020-12-27] MEDS: CEFEPIME 1 GM in D5W 50 ML IV SCH (21:15)
[2020-12-27] MEDS: ATORVASTATIN 20 MG TABLET PO SCH (21:17)
[2020-12-27] MEDS: RIVAROXABAN 10 MG TABLET PO SCH (21:21)
[2020-12-28] VITALS (22 sets, daily range): BP systolic 95–153
[2020-12-28] MEDS: NOREPINEPHRINE BITARTRATE 8 MG in NS 242 ML IV PRN (04:48)
[2020-12-28 06:32] LABS: BASOPHILS # (AUTO) 0.1 K/uL (0.0-0.2); BASOPHILS % (AUTO) 0.4 % (0.0-2.0); EOSINOPHILS # (AUTO) 0.3 K/uL (0.0-0.4); EOSINOPHILS % (AUTO) 2.4 % (0.0-4.0); HEMATOCRIT 22.9 % (36-48); HEMOGLOBIN 7.6 g/dL (12.0-16.0); LYMPHOCYTES # (AUTO) 0.1 K/uL (1.0-5.5); LYMPHOCYTES % (AUTO) 0.9 % (20.5-51.5); MEAN CORPUSCULAR HEMOGLOBIN 26 pg (27-31); MEAN CORPUSCULAR HGB CONC 33 % (32-36); MEAN CORPUSCULAR VOLUME 77 fL (79.0-98.0); MONOCYTES # (AUTO) 0.6 K/uL (0.0-1.0); MONOCYTES % (AUTO) 4.4 % (1.7-9.3); NEUTROPHILS % (AUTO) 91.9 % (40.0-70.0); PLATELET COUNT (AUTO) 142 K/uL (130-430); RED BLOOD CELL COUNT(AUTO) 2.97 MIL/uL (4.2-6.2); RED CELL DISTRIBUTION WIDTH 20.8 % (9.0-15.0); WHITE BLOOD COUNT (AUTO) 13.1 K/uL (4.8-10.8)
[2020-12-28 07:21] LABS: CALCIUM 9.4 mg/dL (8.4-11.0); CREATININE 2.53 mg/dL (0.55-1.30); POTASSIUM 4.1 mmol/L (3.5-5.1)
[2020-12-28] MEDS: LEVOTHYROXINE SODIUM 0.05 MG TABLET PO SCH (08:11)
[2020-12-28] MEDS: POLYETHYLENE GLYCOL 3350, 17 GM/ POWD.PACK PO SCH (08:12)
[2020-12-28] MEDS: TAMSULOSIN HCL 0.4 MG CAP PO SCH (08:12)
[2020-12-28] MEDS: LINEZOLID 300 ML IV SCH (08:12)
[2020-12-28] MEDS: NYSTATIN 15 GM TOPICAL POWDER TP SCH (08:13)
[2020-12-28] MEDS: POTASSIUM CHLORIDE 20 MEQ/PKT PACKET PO SCH (08:17)
[2020-12-28] MEDS: CALCIUM CARBONATE/VITAMIN D3 1 TAB TABLET PO SCH (08:25)
[2020-12-28] MEDS: METOPROLOL TARTRATE 25 MG TABLET PO SCH (09:00)
[2020-12-28 09:31] LABS: MICROALBUMIN URINE RANDOM 8474.3 ug/ml (NOT ESTABLISHED)
[2020-12-29] VITALS (32 sets, daily range): BP systolic 61–165
[2020-12-29 06:35] LABS: BASOPHILS % (AUTO) 0.2 % (0.0-2.0); EOSINOPHILS # (AUTO) 0.3 K/uL (0.0-0.4); EOSINOPHILS % (AUTO) 2.7 % (0.0-4.0); LYMPHOCYTES # (AUTO) 0.1 K/uL (1.0-5.5); LYMPHOCYTES % (AUTO) 1.2 % (20.5-51.5); MEAN CORPUSCULAR HEMOGLOBIN 26 pg (27-31); MEAN CORPUSCULAR HGB CONC 34 % (32-36); MEAN CORPUSCULAR VOLUME 78 fL (79.0-98.0); MONOCYTES # (AUTO) 0.6 K/uL (0.0-1.0); MONOCYTES % (AUTO) 5.2 % (1.7-9.3); NEUTROPHILS # (AUTO) 9.9 K/uL (1.8-7.7); PLATELET COUNT (AUTO) 122 K/uL (130-430); RED BLOOD CELL COUNT(AUTO) 2.62 MIL/uL (4.2-6.2); WHITE BLOOD COUNT (AUTO) 10.9 K/uL (4.8-10.8)
[2020-12-29 07:05] LABS: CALCIUM 8.9 mg/dL (8.4-11.0); CREATININE 2.72 mg/dL (0.55-1.30); POTASSIUM 3.9 mmol/L (3.5-5.1)
[2020-12-29] MEDS: LEVOTHYROXINE SODIUM 0.05 MG TABLET PO SCH (08:01)
[2020-12-29 08:19] LABS: HEMATOCRIT 20.4 % (36-48); HEMOGLOBIN 6.8 g/dL (12.0-16.0)
[2020-12-29] MEDS: TAMSULOSIN HCL 0.4 MG CAP PO SCH (08:53)
[2020-12-29] MEDS: CALCIUM CARBONATE/VITAMIN D3 1 TAB TABLET PO SCH (08:54)
[2020-12-29] MEDS: METOPROLOL TARTRATE 5 MG/5 ML AMPUL IVP PRN (09:30)
[2020-12-29] MEDS: NACL 0.9% 1,000 ML IV SCH (09:45)
[2020-12-29] MEDS ORDERED: METOCLOPRAMIDE HCL 10 MG/2 ML VIAL IVP ONE (10:30)
[2020-12-29] MEDS ORDERED: MORPHINE 2 MG/ML INJ. SYRINGE ONE (12:04)
[2020-12-29] MEDS ORDERED: PHENYLEPHRINE HCL 100 MG in NS 240 ML IV PRN (12:15)
[2020-12-29] MEDS: NOREPINEPHRINE BITARTRATE 8 MG in NS 242 ML IV PRN (13:48)
[2020-12-29 14:07] LABS: NEUTROPHILS % (AUTO) 90.7 % (40.0-70.0)
[2020-12-29] MEDS: PHENYLEPHRINE HCL 100 MG in NS 240 ML IV PRN (14:15)
[2020-12-29] MEDS ORDERED: HEPARIN SODIUM,PORCINE 5,000 UNITS/ML VIAL MC ONE (18:30)
[2020-12-29] MEDS: CEFEPIME 1 GM in D5W 50 ML IV SCH (22:19)
[2020-12-29] MEDS: LINEZOLID 300 ML IV SCH (22:20)
[2020-12-29] MEDS: POTASSIUM CHLORIDE 20 MEQ/PKT PACKET PO SCH (22:22)
[2020-12-29] MEDS: ATORVASTATIN 20 MG TABLET PO SCH ×2 (22:23→23:02)
[2020-12-29] MEDS: METOPROLOL TARTRATE 25 MG TABLET PO SCH (22:25)
[2020-12-29] MEDS: POLYETHYLENE GLYCOL 3350, 17 GM/ POWD.PACK PO SCH (22:26)
[2020-12-29] MEDS: RIVAROXABAN 10 MG TABLET PO SCH (22:29)
[2020-12-30] VITALS (32 sets, daily range): BP systolic 100–182
[2020-12-30] MEDS: NYSTATIN 15 GM TOPICAL POWDER TP SCH ×3 (01:44→21:54)
[2020-12-30 06:23] LABS: BASOPHILS # (AUTO) 0.1 K/uL (0.0-0.2); EOSINOPHILS # (AUTO) 0.3 K/uL (0.0-0.4); EOSINOPHILS % (AUTO) 2.9 % (0.0-4.0); HEMATOCRIT 26.3 % (36-48); HEMOGLOBIN 8.8 g/dL (12.0-16.0); LYMPHOCYTES # (AUTO) 0.5 K/uL (1.0-5.5); MEAN CORPUSCULAR HEMOGLOBIN 27 pg (27-31); MEAN CORPUSCULAR HGB CONC 34 % (32-36); MEAN CORPUSCULAR VOLUME 82 fL (79.0-98.0); MONOCYTES # (AUTO) 0.6 K/uL (0.0-1.0); MONOCYTES % (AUTO) 6.2 % (1.7-9.3); NEUTROPHILS # (AUTO) 8.7 K/uL (1.8-7.7); NEUTROPHILS % (AUTO) 84.9 % (40.0-70.0); PLATELET COUNT (AUTO) 144 K/uL (130-430); RED BLOOD CELL COUNT(AUTO) 3.22 MIL/uL (4.2-6.2); RED CELL DISTRIBUTION WIDTH 20.1 % (9.0-15.0); WHITE BLOOD COUNT (AUTO) 10.2 K/uL (4.8-10.8)
[2020-12-30 07:23] LABS: CREATININE 2.51 mg/dL (0.55-1.30); POTASSIUM 4.2 mmol/L (3.5-5.1); TOTAL BILIRUBIN 3.3 mg/dL (0.0-1.0)
[2020-12-30] MEDS: PHENYLEPHRINE HCL 100 MG in NS 240 ML IV PRN ×2 (08:45→17:34)
[2020-12-30] MEDS: POTASSIUM CHLORIDE 20 MEQ/PKT PACKET PO SCH ×2 (09:00→21:48)
[2020-12-30] MEDS: METOPROLOL TARTRATE 25 MG TABLET PO SCH ×2 (09:00→21:50)
[2020-12-30] MEDS: TAMSULOSIN HCL 0.4 MG CAP PO SCH (09:23)
[2020-12-30] MEDS: POLYETHYLENE GLYCOL 3350, 17 GM/ POWD.PACK PO SCH ×2 (09:23→21:48)
[2020-12-30] MEDS: CALCIUM CARBONATE/VITAMIN D3 1 TAB TABLET PO SCH (09:26)
[2020-12-30] MEDS: LEVOTHYROXINE SODIUM 0.05 MG TABLET PO SCH (09:29)
[2020-12-30] MEDS: LINEZOLID 300 ML IV SCH ×2 (09:30→21:48)
[2020-12-30] MEDS: NACL 0.9% 1,000 ML IV SCH (09:45)
[2020-12-30 11:51] LABS: TOTAL IRON BIND. CAPACITY 184 ug/dL (250-450)
[2020-12-30] MEDS: ATORVASTATIN 20 MG TABLET PO SCH (21:49)
[2020-12-30] MEDS: RIVAROXABAN 10 MG TABLET PO SCH (21:53)
[2020-12-30] MEDS: CEFEPIME 1 GM in D5W 50 ML IV SCH (21:59)
[2020-12-31] VITALS (33 sets, daily range): BP systolic 91–160
[2020-12-31] MEDS: NOREPINEPHRINE BITARTRATE 8 MG in NS 242 ML IV PRN ×2 (03:15→15:19)
[2020-12-31] MEDS ORDERED: PHENYLEPHRINE HCL 10 MG/ML VIAL (NEOSYNEPHRINE) ONE ×2 (03:15→05:25)
[2020-12-31] MEDS: LEVOTHYROXINE SODIUM 0.05 MG TABLET PO SCH (08:04)
[2020-12-31 08:07] LABS: HEPATITIS A AB, IgM Negative (Negative); HEPATITIS B CORE AB, IgM Negative (Negative); HEPATITIS B SURFACE AG Negative (Negative)
[2020-12-31 08:16] LABS: BILIRUBIN,DIRECT 1.8 mg/dL (0.0-0.3)
[2020-12-31 08:21] LABS: BASOPHILS # (AUTO) 0.1 K/uL (0.0-0.2); BASOPHILS % (AUTO) 0.5 % (0.0-2.0); EOSINOPHILS # (AUTO) 0.2 K/uL (0.0-0.4); EOSINOPHILS % (AUTO) 1.7 % (0.0-4.0); HEMATOCRIT 22.5 % (36-48); HEMOGLOBIN 7.5 g/dL (12.0-16.0); LYMPHOCYTES # (AUTO) 0.4 K/uL (1.0-5.5); LYMPHOCYTES % (AUTO) 3.3 % (20.5-51.5); MEAN CORPUSCULAR HEMOGLOBIN 27 pg (27-31); MEAN CORPUSCULAR HGB CONC 33 % (32-36); MEAN CORPUSCULAR VOLUME 81 fL (79.0-98.0); MONOCYTES # (AUTO) 0.5 K/uL (0.0-1.0); MONOCYTES % (AUTO) 4.2 % (1.7-9.3); NEUTROPHILS # (AUTO) 10.1 K/uL (1.8-7.7); NEUTROPHILS % (AUTO) 90.3 % (40.0-70.0); PLATELET COUNT (AUTO) 108 K/uL (130-430); RED BLOOD CELL COUNT(AUTO) 2.78 MIL/uL (4.2-6.2); RED CELL DISTRIBUTION WIDTH 19.9 % (9.0-15.0); WHITE BLOOD COUNT (AUTO) 11.2 K/uL (4.8-10.8)
[2020-12-31] MEDS ORDERED: FUROSEMIDE 40 MG/4 ML VIAL IVP ONE (08:30)
[2020-12-31] MEDS: LINEZOLID 300 ML IV SCH ×2 (08:44→21:42)
[2020-12-31] MEDS: NYSTATIN 15 GM TOPICAL POWDER TP SCH ×2 (08:48→21:43)
[2020-12-31] MEDS: NACL 0.9% 1,000 ML IV SCH ×2 (09:45→19:00)
[2020-12-31] MEDS: DEXMEDETOMIDINE HCL 400 MCG in NS 96 ML IV PRN ×2 (10:01→19:02)
[2020-12-31] MEDS: POLYETHYLENE GLYCOL 3350, 17 GM/ POWD.PACK PO SCH ×2 (10:13→21:42)
[2020-12-31] MEDS: TAMSULOSIN HCL 0.4 MG CAP PO SCH (10:13)
[2020-12-31] MEDS: METOPROLOL TARTRATE 25 MG TABLET PO SCH ×2 (10:14→21:44)
[2020-12-31] MEDS: CALCIUM CARBONATE/VITAMIN D3 1 TAB TABLET PO SCH (10:14)
[2020-12-31] MEDS: POTASSIUM CHLORIDE 20 MEQ/PKT PACKET PO SCH ×2 (10:14→21:44)
[2020-12-31 13:07] LABS: CALCIUM 9.1 mg/dL (8.4-11.0); CREATININE 2.62 mg/dL (0.55-1.30); POTASSIUM 3.8 mmol/L (3.5-5.1)
[2020-12-31] MEDS ORDERED: ALBUMIN HUMAN 25% 100 ML IV ONE (15:30)
[2020-12-31] MEDS ORDERED: HEPARIN SODIUM,PORCINE 5,000 UNITS/ML VIAL IVP ONE (15:45)
[2020-12-31] MEDS: ATORVASTATIN 20 MG TABLET PO SCH (21:45)
[2020-12-31] MEDS: RIVAROXABAN 10 MG TABLET PO SCH (21:47)
[2021-01-01] VITALS (32 sets, daily range): BP systolic 87–148
[2021-01-01] MEDS: CEFEPIME 1 GM in D5W 50 ML IV SCH ×2 (03:22→20:47)
[2021-01-01] MEDS: METOPROLOL TARTRATE 5 MG/5 ML AMPUL IVP PRN (03:32)
[2021-01-01] MEDS ORDERED: NOREPINEPHRINE 4 MG/4 ML VIAL IV ONE ×2 (05:44→13:25)
[2021-01-01] MEDS: NOREPINEPHRINE BITARTRATE 8 MG in NS 242 ML IV PRN ×2 (06:32→14:38)
[2021-01-01] MEDS: DEXMEDETOMIDINE HCL 400 MCG in NS 96 ML IV PRN (06:35)
[2021-01-01 07:01] LABS: ALBUMIN 2.3 g/dL (3.4-4.8); CALCIUM 9.1 mg/dL (8.4-11.0); CREATININE 2.36 mg/dL (0.55-1.30); POTASSIUM 3.7 mmol/L (3.5-5.1); TOTAL BILIRUBIN 3.3 mg/dL (0.0-1.0)
[2021-01-01] MEDS: LEVOTHYROXINE SODIUM 0.05 MG TABLET PO SCH (07:45)
[2021-01-01] MEDS ORDERED: FUROSEMIDE 40 MG/4 ML VIAL IVP ONE (08:15)
[2021-01-01] MEDS: NYSTATIN 15 GM TOPICAL POWDER TP SCH (08:25)
[2021-01-01] MEDS: LINEZOLID 300 ML IV SCH ×2 (08:25→20:48)
[2021-01-01] MEDS: CALCIUM CARBONATE/VITAMIN D3 1 TAB TABLET PO SCH (08:25)
[2021-01-01] MEDS: POTASSIUM CHLORIDE 20 MEQ/PKT PACKET PO SCH (08:25)
[2021-01-01] MEDS: POLYETHYLENE GLYCOL 3350, 17 GM/ POWD.PACK PO SCH ×2 (08:25→20:48)
[2021-01-01] MEDS: METOPROLOL TARTRATE 25 MG TABLET PO SCH ×2 (08:25→20:50)
[2021-01-01] MEDS: TAMSULOSIN HCL 0.4 MG CAP PO SCH (08:25)
[2021-01-01 09:08] LABS: BASOPHILS # (AUTO) 0.1 K/uL (0.0-0.2); BASOPHILS % (AUTO) 0.7 % (0.0-2.0); EOSINOPHILS # (AUTO) 0.2 K/uL (0.0-0.4); EOSINOPHILS % (AUTO) 2.1 % (0.0-4.0); LYMPHOCYTES # (AUTO) 0.3 K/uL (1.0-5.5); LYMPHOCYTES % (AUTO) 3.1 % (20.5-51.5); MEAN CORPUSCULAR HEMOGLOBIN 27 pg (27-31); MEAN CORPUSCULAR HGB CONC 33 % (32-36); MEAN CORPUSCULAR VOLUME 82 fL (79.0-98.0); MONOCYTES # (AUTO) 0.3 K/uL (0.0-1.0); NEUTROPHILS # (AUTO) 9.8 K/uL (1.8-7.7); NEUTROPHILS % (AUTO) 91.1 % (40.0-70.0); PLATELET COUNT (AUTO) 107 K/uL (130-430); RED BLOOD CELL COUNT(AUTO) 2.62 MIL/uL (4.2-6.2); WHITE BLOOD COUNT (AUTO) 10.7 K/uL (4.8-10.8)
[2021-01-01 10:11] LABS: HEMATOCRIT 21.4 % (36-48)
[2021-01-01 10:12] LABS: HEMOGLOBIN 7.1 g/dL (12.0-16.0)
[2021-01-01] MEDS: ATORVASTATIN 20 MG TABLET PO SCH (20:49)
[2021-01-01] MEDS: HEPARIN 25,000 UNITS/D5W 250ML 250 ML IV PRN (20:53)
[2021-01-01] MEDS ORDERED: HEPARIN SODIUM,PORCINE 2000 UNITS/0.4 ML BOLUS IVP PRN (21:00)
[2021-01-01] MEDS ORDERED: HEPARIN SODIUM,PORCINE 5,000 UNITS/ML VIAL IV ONE (21:00)
[2021-01-01] MEDS ORDERED: HEPARIN SODIUM,PORCINE 3000 UNITS/0.6 ML BOLUS IVP PRN (21:00)
[2021-01-01] MEDS ORDERED: *HEPARIN PER PHARMACY XX PRN (21:00)
[2021-01-01] MEDS ORDERED: POTASSIUM CHLORIDE 20 MEQ/PKT PACKET ONE (21:08)
[2021-01-02] VITALS (33 sets, daily range): BP systolic 87–186
[2021-01-02] MEDS: DEXMEDETOMIDINE HCL 400 MCG in NS 96 ML IV PRN ×3 (02:37→20:55)
[2021-01-02] MEDS: NYSTATIN 15 GM TOPICAL POWDER TP SCH ×3 (02:40→20:33)
[2021-01-02] MEDS: POTASSIUM CHLORIDE 20 MEQ/PKT PACKET PO SCH ×3 (02:40→20:41)
[2021-01-02] MEDS: PHENYLEPHRINE HCL 100 MG in NS 240 ML IV PRN (05:51)
[2021-01-02] MEDS: LEVOTHYROXINE SODIUM 0.05 MG TABLET PO SCH (07:21)
[2021-01-02 07:54] LABS: BASOPHILS # (AUTO) 0.1 K/uL (0.0-0.2); BASOPHILS % (AUTO) 0.9 % (0.0-2.0); EOSINOPHILS # (AUTO) 0.4 K/uL (0.0-0.4); EOSINOPHILS % (AUTO) 3.4 % (0.0-4.0); LYMPHOCYTES # (AUTO) 0.4 K/uL (1.0-5.5); LYMPHOCYTES % (AUTO) 3.3 % (20.5-51.5); MEAN CORPUSCULAR HEMOGLOBIN 28 pg (27-31); MEAN CORPUSCULAR HGB CONC 34 % (32-36); MEAN CORPUSCULAR VOLUME 81 fL (79.0-98.0); MONOCYTES # (AUTO) 0.3 K/uL (0.0-1.0); MONOCYTES % (AUTO) 2.7 % (1.7-9.3); NEUTROPHILS # (AUTO) 9.6 K/uL (1.8-7.7); NEUTROPHILS % (AUTO) 89.7 % (40.0-70.0); PLATELET COUNT (AUTO) 118 K/uL (130-430); RED BLOOD CELL COUNT(AUTO) 2.26 MIL/uL (4.2-6.2); WHITE BLOOD COUNT (AUTO) 10.7 K/uL (4.8-10.8)
[2021-01-02 07:56] LABS: ALBUMIN 1.9 g/dL (3.4-4.8); CALCIUM 9.1 mg/dL (8.4-11.0); CREATININE 2.52 mg/dL (0.55-1.30); PHOSPHORUS 3.1 mg/dL (2.7-4.5); POTASSIUM 3.5 mmol/L (3.5-5.1); TOTAL BILIRUBIN 1.9 mg/dL (0.0-1.0)
[2021-01-02] MEDS ORDERED: FUROSEMIDE 40 MG/4 ML VIAL IVP ONE (09:00)
[2021-01-02] MEDS: METOPROLOL TARTRATE 25 MG TABLET PO SCH ×2 (09:00→20:30)
[2021-01-02 09:05] LABS: HEMATOCRIT 18.3 % (36-48); HEMOGLOBIN 6.3 g/dL (12.0-16.0)
[2021-01-02] MEDS: POLYETHYLENE GLYCOL 3350, 17 GM/ POWD.PACK PO SCH ×2 (10:29→20:32)
[2021-01-02] MEDS: LINEZOLID 300 ML IV SCH ×2 (10:29→20:40)
[2021-01-02] MEDS: TAMSULOSIN HCL 0.4 MG CAP PO SCH (10:30)
[2021-01-02] MEDS: NACL 0.9% 1,000 ML IV SCH (10:30)
[2021-01-02] MEDS: CALCIUM CARBONATE/VITAMIN D3 1 TAB TABLET PO SCH (10:30)
[2021-01-02 11:06] LABS: ANTI-SMOOTH MUSCLE AB 8 Units (0-19); LIVER-KIDNEY MICROSOMAL AB 0.5 Units (0.0-20.0)
[2021-01-02 11:42] LABS: CERULOPLASMIN 28.8 mg/dL (19.0-39.0)
[2021-01-02] MEDS: NOREPINEPHRINE BITARTRATE 8 MG in NS 242 ML IV PRN (13:10)
[2021-01-02] MEDS: ATORVASTATIN 20 MG TABLET PO SCH (20:29)
[2021-01-02] MEDS ORDERED: METOPROLOL TARTRATE 25 MG TABLET ONE (20:35)
[2021-01-02] MEDS: HEPARIN 25,000 UNITS/D5W 250ML 250 ML IV PRN (20:38)
[2021-01-02] MEDS: CEFEPIME 1 GM in D5W 50 ML IV SCH (20:43)
[2021-01-02] MEDS: MORPHINE 2 MG/ML INJ. SYRINGE IVP PRN (20:47)
[2021-01-02] MEDS ORDERED: DEXMEDETOMIDINE HCL 200 MCG/2 ML VIAL IV ONE (23:47)
[2021-01-03] VITALS (35 sets, daily range): BP systolic 89–159
[2021-01-03] MEDS: DEXMEDETOMIDINE HCL 400 MCG in NS 96 ML IV PRN ×5 (02:36→19:14)
[2021-01-03] MEDS ORDERED: DEXMEDETOMIDINE HCL 200 MCG/2 ML VIAL IV ONE (06:16)
[2021-01-03 06:30] LABS: CALCIUM 8.9 mg/dL (8.4-11.0); CREATININE 2.66 mg/dL (0.55-1.30); POTASSIUM 3.8 mmol/L (3.5-5.1)
[2021-01-03] MEDS: LEVOTHYROXINE SODIUM 0.05 MG TABLET PO SCH (06:47)
[2021-01-03 07:33] LABS: BASOPHILS # (AUTO) 0.1 K/uL (0.0-0.2); BASOPHILS % (AUTO) 0.7 % (0.0-2.0); EOSINOPHILS # (AUTO) 0.5 K/uL (0.0-0.4); EOSINOPHILS % (AUTO) 3.5 % (0.0-4.0); HEMOGLOBIN 7.3 g/dL (12.0-16.0); LYMPHOCYTES # (AUTO) 0.2 K/uL (1.0-5.5); LYMPHOCYTES % (AUTO) 1.7 % (20.5-51.5); MEAN CORPUSCULAR HEMOGLOBIN 29 pg (27-31); MEAN CORPUSCULAR HGB CONC 35 % (32-36); MEAN CORPUSCULAR VOLUME 82 fL (79.0-98.0); MONOCYTES # (AUTO) 0.4 K/uL (0.0-1.0); MONOCYTES % (AUTO) 3.4 % (1.7-9.3); NEUTROPHILS # (AUTO) 11.8 K/uL (1.8-7.7); NEUTROPHILS % (AUTO) 90.7 % (40.0-70.0); PLATELET COUNT (AUTO) 152 K/uL (130-430); RED BLOOD CELL COUNT(AUTO) 2.54 MIL/uL (4.2-6.2); RED CELL DISTRIBUTION WIDTH 19.6 % (9.0-15.0)
[2021-01-03 08:12] LABS: HEMATOCRIT 20.8 % (36-48)
[2021-01-03] MEDS ORDERED: FUROSEMIDE 40 MG/4 ML VIAL IVP SCH (09:00)
[2021-01-03] MEDS: POLYETHYLENE GLYCOL 3350, 17 GM/ POWD.PACK PO SCH ×2 (09:00→21:08)
[2021-01-03] MEDS: LINEZOLID 300 ML IV SCH ×2 (09:28→21:07)
[2021-01-03] MEDS: TAMSULOSIN HCL 0.4 MG CAP PO SCH (09:29)
[2021-01-03] MEDS: CALCIUM CARBONATE/VITAMIN D3 1 TAB TABLET PO SCH (09:29)
[2021-01-03] MEDS: POTASSIUM CHLORIDE 20 MEQ/PKT PACKET PO SCH ×2 (09:29→21:08)
[2021-01-03] MEDS: NYSTATIN 15 GM TOPICAL POWDER TP SCH ×2 (09:30→21:09)
[2021-01-03] MEDS: METOPROLOL TARTRATE 25 MG TABLET PO SCH ×2 (09:30→21:09)
[2021-01-03] MEDS: NACL 0.9% 1,000 ML IV SCH (09:45)
[2021-01-03 11:06] LABS: ANTI NUCLEAR AB WITH REFLEX Negative (Negative)
[2021-01-03] MEDS ORDERED: HEPARIN SODIUM,PORCINE 5,000 UNITS/ML VIAL MC ONE (12:15)
[2021-01-03] MEDS: PANTOPRAZOLE SODIUM 40 MG in NS 50 ML IV SCH ×3 (13:59→23:45)
[2021-01-03] MEDS ORDERED: NOREPINEPHRINE 4 MG/4 ML VIAL IV ONE (14:25)
[2021-01-03] MEDS: NOREPINEPHRINE BITARTRATE 8 MG in NS 242 ML IV PRN (14:25)
[2021-01-03] MEDS: CEFEPIME 1 GM in D5W 50 ML IV SCH (21:08)
[2021-01-03] MEDS: ATORVASTATIN 20 MG TABLET PO SCH (21:08)
[2021-01-04] VITALS (33 sets, daily range): BP systolic 90–196
[2021-01-04] MEDS: DEXMEDETOMIDINE HCL 400 MCG in NS 96 ML IV PRN ×3 (01:38→14:08)
[2021-01-04] MEDS: PANTOPRAZOLE SODIUM 40 MG in NS 50 ML IV SCH ×4 (04:03→14:08)
[2021-01-04 06:29] LABS: ALBUMIN 1.9 g/dL (3.4-4.8); CALCIUM 9.2 mg/dL (8.4-11.0); CREATININE 2.27 mg/dL (0.55-1.30); POTASSIUM 3.8 mmol/L (3.5-5.1); TOTAL BILIRUBIN 2.2 mg/dL (0.0-1.0)
[2021-01-04 07:15] LABS: BASOPHILS % (AUTO) 0.5 % (0.0-2.0); EOSINOPHILS # (AUTO) 0.1 K/uL (0.0-0.4); EOSINOPHILS % (AUTO) 1.2 % (0.0-4.0); HEMATOCRIT 24.2 % (36-48); HEMOGLOBIN 7.9 g/dL (12.0-16.0); LYMPHOCYTES # (AUTO) 0.2 K/uL (1.0-5.5); LYMPHOCYTES % (AUTO) 2.1 % (20.5-51.5); MEAN CORPUSCULAR HEMOGLOBIN 28 pg (27-31); MEAN CORPUSCULAR HGB CONC 33 % (32-36); MEAN CORPUSCULAR VOLUME 86 fL (79.0-98.0); MONOCYTES # (AUTO) 0.3 K/uL (0.0-1.0); MONOCYTES % (AUTO) 2.7 % (1.7-9.3); NEUTROPHILS # (AUTO) 9.5 K/uL (1.8-7.7); NEUTROPHILS % (AUTO) 93.5 % (40.0-70.0); PLATELET COUNT (AUTO) 53 K/uL (130-430); RED BLOOD CELL COUNT(AUTO) 2.81 MIL/uL (4.2-6.2); RED CELL DISTRIBUTION WIDTH 18.6 % (9.0-15.0); WHITE BLOOD COUNT (AUTO) 10.1 K/uL (4.8-10.8)
[2021-01-04] MEDS: TAMSULOSIN HCL 0.4 MG CAP PO SCH (08:34)
[2021-01-04] MEDS: LINEZOLID 300 ML IV SCH (08:34)
[2021-01-04] MEDS: POTASSIUM CHLORIDE 20 MEQ/PKT PACKET PO SCH ×2 (08:35→22:17)
[2021-01-04] MEDS: METOPROLOL TARTRATE 25 MG TABLET PO SCH ×2 (08:35→22:19)
[2021-01-04] MEDS: LEVOTHYROXINE SODIUM 0.05 MG TABLET PO SCH (08:35)
[2021-01-04] MEDS: CALCIUM CARBONATE/VITAMIN D3 1 TAB TABLET PO SCH (08:36)
[2021-01-04] MEDS: NYSTATIN 15 GM TOPICAL POWDER TP SCH ×2 (08:37→22:20)
[2021-01-04] MEDS: POLYETHYLENE GLYCOL 3350, 17 GM/ POWD.PACK PO SCH ×2 (09:00→22:20)
[2021-01-04] MEDS: NACL 0.9% 1,000 ML IV SCH (09:45)
[2021-01-04] MEDS: MORPHINE 2 MG/ML INJ. SYRINGE IVP PRN (21:25)
[2021-01-04] MEDS: ATORVASTATIN 20 MG TABLET PO SCH (22:18)
[2021-01-05] VITALS (35 sets, daily range): BP systolic 75–166
[2021-01-05] MEDS: PANTOPRAZOLE SODIUM 40 MG in NS 50 ML IV SCH ×5 (01:20→20:15)
[2021-01-05] MEDS: DEXMEDETOMIDINE HCL 400 MCG in NS 96 ML IV PRN ×4 (06:21→16:04)
[2021-01-05 07:45] LABS: CALCIUM 9.3 mg/dL (8.4-11.0); CREATININE 2.47 mg/dL (0.55-1.30); POTASSIUM 4.2 mmol/L (3.5-5.1)
[2021-01-05 08:21] LABS: BASOPHILS # (AUTO) 0.1 K/uL (0.0-0.2); BASOPHILS % (AUTO) 1.1 % (0.0-2.0); EOSINOPHILS # (AUTO) 0.7 K/uL (0.0-0.4); EOSINOPHILS % (AUTO) 6.1 % (0.0-4.0); HEMOGLOBIN 8.2 g/dL (12.0-16.0); LYMPHOCYTES # (AUTO) 0.2 K/uL (1.0-5.5); LYMPHOCYTES % (AUTO) 2.1 % (20.5-51.5); MEAN CORPUSCULAR HEMOGLOBIN 30 pg (27-31); MEAN CORPUSCULAR HGB CONC 36 % (32-36); MEAN CORPUSCULAR VOLUME 84 fL (79.0-98.0); MONOCYTES # (AUTO) 0.4 K/uL (0.0-1.0); MONOCYTES % (AUTO) 3.4 % (1.7-9.3); NEUTROPHILS # (AUTO) 10.2 K/uL (1.8-7.7); PLATELET COUNT (AUTO) 196 K/uL (130-430); RED BLOOD CELL COUNT(AUTO) 2.72 MIL/uL (4.2-6.2); RED CELL DISTRIBUTION WIDTH 19.4 % (9.0-15.0); WHITE BLOOD COUNT (AUTO) 11.7 K/uL (4.8-10.8)
[2021-01-05] MEDS: METOPROLOL TARTRATE 25 MG TABLET PO SCH ×2 (09:00→20:17)
[2021-01-05] MEDS ORDERED: HEPARIN SODIUM,PORCINE 5,000 UNITS/ML VIAL IVP ONE (10:15)
[2021-01-05] MEDS ORDERED: HEPARIN SODIUM,PORCINE 5,000 UNITS/ML VIAL ONE (10:31)
[2021-01-05] MEDS: NACL 0.9% 1,000 ML IV SCH (11:20)
[2021-01-05] MEDS: POTASSIUM CHLORIDE 20 MEQ/PKT PACKET PO SCH ×2 (11:34→20:15)
[2021-01-05] MEDS: LEVOTHYROXINE SODIUM 0.05 MG TABLET PO SCH (11:34)
[2021-01-05] MEDS: POLYETHYLENE GLYCOL 3350, 17 GM/ POWD.PACK PO SCH ×2 (11:34→20:18)
[2021-01-05] MEDS: TAMSULOSIN HCL 0.4 MG CAP PO SCH (11:34)
[2021-01-05] MEDS: NYSTATIN 15 GM TOPICAL POWDER TP SCH ×2 (11:35→20:18)
[2021-01-05] MEDS: CALCIUM CARBONATE/VITAMIN D3 1 TAB TABLET PO SCH (11:36)
[2021-01-05 13:30] LABS: NEUTROPHILS % (AUTO) 87.3 % (40.0-70.0)
[2021-01-05] MEDS: NOREPINEPHRINE BITARTRATE 8 MG in NS 242 ML IV PRN (15:59)
[2021-01-05] MEDS: ATORVASTATIN 20 MG TABLET PO SCH (20:15)
[2021-01-05] MEDS: MORPHINE 2 MG/ML INJ. SYRINGE IVP PRN (20:34)
[2021-01-06] VITALS (34 sets, daily range): BP systolic 87–177
[2021-01-06] MEDS: PANTOPRAZOLE SODIUM 40 MG in NS 50 ML IV SCH ×3 (00:17→11:24)
[2021-01-06 06:19] LABS: BASOPHILS % (AUTO) 0.4 % (0.0-2.0); EOSINOPHILS # (AUTO) 0.2 K/uL (0.0-0.4); HEMATOCRIT 22.1 % (36-48); HEMOGLOBIN 7.6 g/dL (12.0-16.0); LYMPHOCYTES # (AUTO) 0.1 K/uL (1.0-5.5); MEAN CORPUSCULAR HEMOGLOBIN 29 pg (27-31); MEAN CORPUSCULAR HGB CONC 34 % (32-36); MEAN CORPUSCULAR VOLUME 83 fL (79.0-98.0); MONOCYTES # (AUTO) 0.3 K/uL (0.0-1.0); MONOCYTES % (AUTO) 4.4 % (1.7-9.3); NEUTROPHILS # (AUTO) 6.9 K/uL (1.8-7.7); NEUTROPHILS % (AUTO) 92.2 % (40.0-70.0); RED BLOOD CELL COUNT(AUTO) 2.64 MIL/uL (4.2-6.2); RED CELL DISTRIBUTION WIDTH 19.1 % (9.0-15.0); WHITE BLOOD COUNT (AUTO) 7.5 K/uL (4.8-10.8)
[2021-01-06 06:58] LABS: CALCIUM 9.1 mg/dL (8.4-11.0); CREATININE 2.21 mg/dL (0.55-1.30); POTASSIUM 4.2 mmol/L (3.5-5.1)
[2021-01-06 08:05] LABS: PLATELET COUNT (AUTO) 45 K/uL (130-430)
[2021-01-06] MEDS: METOPROLOL TARTRATE 25 MG TABLET PO SCH ×2 (09:00→21:30)
[2021-01-06] MEDS: TAMSULOSIN HCL 0.4 MG CAP PO SCH (09:08)
[2021-01-06] MEDS: LEVOTHYROXINE SODIUM 0.05 MG TABLET PO SCH (09:08)
[2021-01-06] MEDS: POTASSIUM CHLORIDE 20 MEQ/PKT PACKET PO SCH ×2 (09:08→21:29)
[2021-01-06] MEDS: NYSTATIN 15 GM TOPICAL POWDER TP SCH ×2 (09:09→21:30)
[2021-01-06] MEDS: CALCIUM CARBONATE/VITAMIN D3 1 TAB TABLET PO SCH (09:13)
[2021-01-06] MEDS: POLYETHYLENE GLYCOL 3350, 17 GM/ POWD.PACK PO SCH ×2 (09:21→21:30)
[2021-01-06] MEDS: NACL 0.9% 1,000 ML IV SCH (09:45)
[2021-01-06] MEDS: SUCRALFATE 1 GM/10 ML UDC NG SCH (17:00)
[2021-01-06] MEDS: DEXMEDETOMIDINE HCL 400 MCG in NS 96 ML IV PRN (19:02)
[2021-01-06] MEDS: ATORVASTATIN 20 MG TABLET PO SCH (21:30)
[2021-01-07] VITALS (33 sets, daily range): BP systolic 76–181
[2021-01-07] MEDS: TAMSULOSIN HCL 0.4 MG CAP PO SCH (09:42)
[2021-01-07] MEDS: LEVOTHYROXINE SODIUM 0.05 MG TABLET PO SCH (09:42)
[2021-01-07] MEDS: POTASSIUM CHLORIDE 20 MEQ/PKT PACKET PO SCH ×2 (09:42→21:54)
[2021-01-07] MEDS: SUCRALFATE 1 GM/10 ML UDC NG SCH ×2 (09:42→18:58)
[2021-01-07] MEDS: METOPROLOL TARTRATE 25 MG TABLET PO SCH ×2 (09:43→21:53)
[2021-01-07] MEDS: POLYETHYLENE GLYCOL 3350, 17 GM/ POWD.PACK PO SCH ×2 (09:43→21:53)
[2021-01-07] MEDS: CALCIUM CARBONATE/VITAMIN D3 1 TAB TABLET PO SCH (09:47)
[2021-01-07] MEDS ORDERED: HEPARIN SODIUM,PORCINE 5,000 UNITS/ML VIAL SUBCUT ONE ×2 (12:15)
[2021-01-07] MEDS ORDERED: HEPARIN SODIUM,PORCINE 5,000 UNITS/ML VIAL ONE (12:16)
[2021-01-07] MEDS ORDERED: NOREPINEPHRINE 4 MG/4 ML VIAL IV ONE (12:39)
[2021-01-07] MEDS: NYSTATIN 15 GM TOPICAL POWDER TP SCH ×2 (13:30→21:53)
[2021-01-07] MEDS: NACL 0.9% 1,000 ML IV SCH (13:30)
[2021-01-07] MEDS: DEXMEDETOMIDINE HCL 400 MCG in NS 96 ML IV PRN (13:37)
[2021-01-07] MEDS: NOREPINEPHRINE BITARTRATE 16 MG in NS 234 ML IV PRN (13:38)
[2021-01-07] MEDS: MORPHINE 2 MG/ML INJ. SYRINGE IVP PRN (13:49)
[2021-01-07 16:44] LABS: HEMOGLOBIN 7.6 g/dL (12.0-16.0); MEAN CORPUSCULAR HEMOGLOBIN 29 pg (27-31); MEAN CORPUSCULAR HGB CONC 33 % (32-36); MEAN CORPUSCULAR VOLUME 87 fL (79.0-98.0); RED BLOOD CELL COUNT(AUTO) 2.63 MIL/uL (4.2-6.2); WHITE BLOOD COUNT (AUTO) 5.6 K/uL (4.8-10.8)
[2021-01-07 17:05] LABS: PLATELET COUNT (AUTO) 49 K/uL (130-430)
[2021-01-07 17:11] LABS: CREATININE 2.02 mg/dL (0.55-1.30)
[2021-01-07 17:23] LABS: BAND % (MANUAL) 0 % (0-6); BASOPHILS % (MANUAL) 0 % (0-2); EOSINOPHILS % (MANUAL) 0 % (0-7); LYMPHOCYTES % (MANUAL) 3 % (20-46); MONOCYTES % (MANUAL) 1 % (0-11)
[2021-01-07] MEDS: ATORVASTATIN 20 MG TABLET PO SCH (21:54)
[2021-01-08] VITALS (32 sets, daily range): BP systolic 76–169
[2021-01-08] MEDS: SUCRALFATE 1 GM/10 ML UDC NG SCH ×2 (06:00→19:06)
[2021-01-08] MEDS: LEVOTHYROXINE SODIUM 0.05 MG TABLET PO SCH (06:00)
[2021-01-08 07:24] LABS: INR 1.2 (0.8-1.2); PROTHROMBIN TIME 12.7 SECS (9.5-12.5)
[2021-01-08] MEDS: POLYETHYLENE GLYCOL 3350, 17 GM/ POWD.PACK PO SCH ×2 (09:00→21:54)
[2021-01-08] MEDS: TAMSULOSIN HCL 0.4 MG CAP PO SCH (09:08)
[2021-01-08] MEDS: CALCIUM CARBONATE/VITAMIN D3 1 TAB TABLET PO SCH (09:09)
[2021-01-08] MEDS: METOPROLOL TARTRATE 25 MG TABLET PO SCH ×2 (09:09→21:55)
[2021-01-08] MEDS: POTASSIUM CHLORIDE 20 MEQ/PKT PACKET PO SCH ×2 (09:09→21:54)
[2021-01-08] MEDS: NYSTATIN 15 GM TOPICAL POWDER TP SCH ×2 (09:09→21:55)
[2021-01-08] MEDS: NACL 0.9% 1,000 ML IV SCH (09:12)
[2021-01-08 09:48] LABS: CALCIUM 9.2 mg/dL (8.4-11.0); CREATININE 2.08 mg/dL (0.55-1.30); POTASSIUM 3.8 mmol/L (3.5-5.1); TOTAL BILIRUBIN 2.1 mg/dL (0.0-1.0)
[2021-01-08 10:59] LABS: BASOPHILS % (AUTO) 0.5 % (0.0-2.0); EOSINOPHILS # (AUTO) 0.1 K/uL (0.0-0.4); EOSINOPHILS % (AUTO) 3.3 % (0.0-4.0); HEMOGLOBIN 7.1 g/dL (12.0-16.0); LYMPHOCYTES # (AUTO) 0.3 K/uL (1.0-5.5); LYMPHOCYTES % (AUTO) 7.9 % (20.5-51.5); MEAN CORPUSCULAR HEMOGLOBIN 28 pg (27-31); MEAN CORPUSCULAR HGB CONC 33 % (32-36); MEAN CORPUSCULAR VOLUME 85 fL (79.0-98.0); MONOCYTES # (AUTO) 0.2 K/uL (0.0-1.0); MONOCYTES % (AUTO) 5.9 % (1.7-9.3); NEUTROPHILS # (AUTO) 3.1 K/uL (1.8-7.7); NEUTROPHILS % (AUTO) 82.4 % (40.0-70.0); PLATELET COUNT (AUTO) 51 K/uL (130-430); RED BLOOD CELL COUNT(AUTO) 2.51 MIL/uL (4.2-6.2); RED CELL DISTRIBUTION WIDTH 19.7 % (9.0-15.0)
[2021-01-08 11:53] LABS: WHITE BLOOD COUNT (AUTO) 3.8 K/uL (4.8-10.8)
[2021-01-08 11:55] LABS: HEMATOCRIT 21.2 % (36-48)
[2021-01-08 17:40] LABS: HEMATOCRIT 20.5 % (36-48); HEMOGLOBIN 6.9 g/dL (12.0-16.0)
[2021-01-08] MEDS: ATORVASTATIN 20 MG TABLET PO SCH (21:54)
[2021-01-09] VITALS (28 sets, daily range): BP systolic 71–183
[2021-01-09] MEDS: DEXMEDETOMIDINE HCL 400 MCG in NS 96 ML IV PRN ×4 (00:38→20:30)
[2021-01-09] MEDS: NOREPINEPHRINE BITARTRATE 16 MG in NS 234 ML IV PRN ×2 (01:20→20:17)
[2021-01-09] MEDS: SUCRALFATE 1 GM/10 ML UDC NG SCH ×2 (05:45→16:14)
[2021-01-09] MEDS: LEVOTHYROXINE SODIUM 0.05 MG TABLET PO SCH (05:46)
[2021-01-09 06:55] LABS: INR 1.2 (0.8-1.2); PROTHROMBIN TIME 12.6 SECS (9.5-12.5)
[2021-01-09 07:57] LABS: CALCIUM 9.2 mg/dL (8.4-11.0); CREATININE 2.12 mg/dL (0.55-1.30)
[2021-01-09 08:37] LABS: BASOPHILS % (AUTO) 0.9 % (0.0-2.0); EOSINOPHILS # (AUTO) 0.2 K/uL (0.0-0.4); EOSINOPHILS % (AUTO) 5.6 % (0.0-4.0); HEMATOCRIT 27.9 % (36-48); HEMOGLOBIN 9.5 g/dL (12.0-16.0); LYMPHOCYTES # (AUTO) 0.1 K/uL (1.0-5.5); LYMPHOCYTES % (AUTO) 3.4 % (20.5-51.5); MEAN CORPUSCULAR HEMOGLOBIN 28 pg (27-31); MEAN CORPUSCULAR HGB CONC 34 % (32-36); MEAN CORPUSCULAR VOLUME 84 fL (79.0-98.0); MONOCYTES # (AUTO) 0.3 K/uL (0.0-1.0); MONOCYTES % (AUTO) 7.4 % (1.7-9.3); NEUTROPHILS # (AUTO) 3.1 K/uL (1.8-7.7); NEUTROPHILS % (AUTO) 82.7 % (40.0-70.0); PLATELET COUNT (AUTO) 60 K/uL (130-430); RED BLOOD CELL COUNT(AUTO) 3.33 MIL/uL (4.2-6.2); RED CELL DISTRIBUTION WIDTH 18.1 % (9.0-15.0); WHITE BLOOD COUNT (AUTO) 3.7 K/uL (4.8-10.8)
[2021-01-09] MEDS ORDERED: PANTOPRAZOLE SODIUM 40 MG/VIAL (PROTONIX) IVP ONE (09:00)
[2021-01-09] MEDS: CALCIUM CARBONATE/VITAMIN D3 1 TAB TABLET PO SCH (09:21)
[2021-01-09] MEDS: TAMSULOSIN HCL 0.4 MG CAP PO SCH (09:21)
[2021-01-09] MEDS: METOPROLOL TARTRATE 25 MG TABLET PO SCH ×2 (09:21→20:25)
[2021-01-09] MEDS: POTASSIUM CHLORIDE 20 MEQ/PKT PACKET PO SCH ×2 (09:22→20:25)
[2021-01-09] MEDS: POLYETHYLENE GLYCOL 3350, 17 GM/ POWD.PACK PO SCH ×2 (09:22→20:25)
[2021-01-09] MEDS: NYSTATIN 15 GM TOPICAL POWDER TP SCH ×2 (09:22→20:26)
[2021-01-09] MEDS: METOCLOPRAMIDE HCL 10 MG/2 ML VIAL IVP SCH ×2 (12:22→17:14)
[2021-01-09] MEDS: NACL 0.9% 1,000 ML IV SCH (17:15)
[2021-01-09 17:29] LABS: INR 1.2 (0.8-1.2); PROTHROMBIN TIME 12.9 SECS (9.5-12.5)
[2021-01-09] MEDS: ATORVASTATIN 20 MG TABLET PO SCH (20:25)
[2021-01-09] MEDS: PANTOPRAZOLE SODIUM 40 MG/VIAL (PROTONIX) IVP SCH (20:25)
[2021-01-09] MEDS ORDERED: NALOXONE HCL 0.4 MG/ML AMP (NARCAN) IVP PRN (22:15)
[2021-01-09] MEDS ORDERED: MORPHINE SULFATE IN 0.9 % NACL 100 ML IV ONE (22:18)
[2021-01-09] MEDS: MORPHINE SULFATE IN 0.9 % NACL 100 ML IV PRN (22:20)
[2021-01-10] VITALS (27 sets, daily range): BP systolic 94–165
[2021-01-10] MEDS: DEXMEDETOMIDINE HCL 400 MCG in NS 96 ML IV PRN ×2 (05:00→21:00)
[2021-01-10 06:31] LABS: BASOPHILS % (AUTO) 0.6 % (0.0-2.0); EOSINOPHILS # (AUTO) 0.1 K/uL (0.0-0.4); EOSINOPHILS % (AUTO) 4.3 % (0.0-4.0); HEMATOCRIT 27.5 % (36-48); HEMOGLOBIN 9.4 g/dL (12.0-16.0); LYMPHOCYTES # (AUTO) 0.1 K/uL (1.0-5.5); LYMPHOCYTES % (AUTO) 4.1 % (20.5-51.5); MEAN CORPUSCULAR HEMOGLOBIN 29 pg (27-31); MEAN CORPUSCULAR HGB CONC 34 % (32-36); MEAN CORPUSCULAR VOLUME 84 fL (79.0-98.0); MONOCYTES # (AUTO) 0.4 K/uL (0.0-1.0); MONOCYTES % (AUTO) 11.3 % (1.7-9.3); NEUTROPHILS # (AUTO) 2.7 K/uL (1.8-7.7); NEUTROPHILS % (AUTO) 79.7 % (40.0-70.0); RED BLOOD CELL COUNT(AUTO) 3.28 MIL/uL (4.2-6.2); RED CELL DISTRIBUTION WIDTH 18.6 % (9.0-15.0); WHITE BLOOD COUNT (AUTO) 3.3 K/uL (4.8-10.8)
[2021-01-10] MEDS: SUCRALFATE 1 GM/10 ML UDC NG SCH ×2 (06:47→18:56)
[2021-01-10] MEDS: LEVOTHYROXINE SODIUM 0.05 MG TABLET PO SCH (06:47)
[2021-01-10] MEDS: METOCLOPRAMIDE HCL 10 MG/2 ML VIAL IVP SCH ×3 (06:49→18:57)
[2021-01-10 08:09] LABS: INR 1.2 (0.8-1.2); PROTHROMBIN TIME 12.5 SECS (9.5-12.5)
[2021-01-10] MEDS: NYSTATIN 15 GM TOPICAL POWDER TP SCH ×2 (09:00→21:32)
[2021-01-10] MEDS: METOPROLOL TARTRATE 25 MG TABLET PO SCH ×2 (09:00→21:00)
[2021-01-10] MEDS: CALCIUM CARBONATE/VITAMIN D3 1 TAB TABLET PO SCH (09:00)
[2021-01-10] MEDS: POTASSIUM CHLORIDE 20 MEQ/PKT PACKET PO SCH ×2 (09:00→21:00)
[2021-01-10] MEDS: POLYETHYLENE GLYCOL 3350, 17 GM/ POWD.PACK PO SCH ×2 (09:00→21:00)
[2021-01-10] MEDS: PANTOPRAZOLE SODIUM 40 MG/VIAL (PROTONIX) IVP SCH ×2 (09:00→21:00)
[2021-01-10] MEDS: TAMSULOSIN HCL 0.4 MG CAP PO SCH (09:00)
[2021-01-10] MEDS: NACL 0.9% 1,000 ML IV SCH (09:45)
[2021-01-10 09:56] LABS: ALBUMIN 1.7 g/dL (3.4-4.8); CALCIUM 8.3 mg/dL (8.4-11.0); CREATININE 2.42 mg/dL (0.55-1.30); POTASSIUM 4.2 mmol/L (3.5-5.1); TOTAL BILIRUBIN 2.5 mg/dL (0.0-1.0)
[2021-01-10 10:01] LABS: PLATELET COUNT (AUTO) 39 K/uL (130-430)
[2021-01-10] MEDS: ALBUMIN HUMAN 25% 100 ML IV SCH ×2 (13:00→21:34)
[2021-01-10] MEDS ORDERED: HEPARIN SODIUM, PORCINE 10,000 UNITS/ 10 ML VIAL MC ONE (16:15)
[2021-01-10] MEDS ORDERED: HEPARIN SODIUM,PORCINE 5,000 UNITS/ML VIAL ONE (16:28)
[2021-01-10] MEDS: ATORVASTATIN 20 MG TABLET PO SCH (21:00)
[2021-01-10] MEDS: CEFEPIME 1 GM in D5W 50 ML IV SCH (21:00)
[2021-01-10] MEDS: MORPHINE SULFATE IN 0.9 % NACL 100 ML IV PRN (22:00)
[2021-01-10] MEDS ORDERED: CEFEPIME 1 GM/VIAL (MAXIPIME) ONE (22:50)
[2021-01-11] VITALS (32 sets, daily range): BP systolic 89–162
[2021-01-11] MEDS: ALBUMIN HUMAN 25% 100 ML IV SCH (01:00)
[2021-01-11] MEDS: DEXMEDETOMIDINE HCL 400 MCG in NS 96 ML IV PRN ×4 (01:30→17:42)
[2021-01-11 06:36] LABS: BASOPHILS % (AUTO) 0.9 % (0.0-2.0); EOSINOPHILS # (AUTO) 0.2 K/uL (0.0-0.4); EOSINOPHILS % (AUTO) 5.6 % (0.0-4.0); HEMOGLOBIN 8.2 g/dL (12.0-16.0); LYMPHOCYTES # (AUTO) 0.1 K/uL (1.0-5.5); LYMPHOCYTES % (AUTO) 2.6 % (20.5-51.5); MEAN CORPUSCULAR HEMOGLOBIN 29 pg (27-31); MEAN CORPUSCULAR HGB CONC 34 % (32-36); MEAN CORPUSCULAR VOLUME 84 fL (79.0-98.0); MONOCYTES # (AUTO) 0.4 K/uL (0.0-1.0); MONOCYTES % (AUTO) 12.6 % (1.7-9.3); NEUTROPHILS # (AUTO) 2.6 K/uL (1.8-7.7); NEUTROPHILS % (AUTO) 78.3 % (40.0-70.0); PLATELET COUNT (AUTO) 74 K/uL (130-430); RED BLOOD CELL COUNT(AUTO) 2.86 MIL/uL (4.2-6.2); RED CELL DISTRIBUTION WIDTH 18.6 % (9.0-15.0); WHITE BLOOD COUNT (AUTO) 3.3 K/uL (4.8-10.8)
[2021-01-11] MEDS: SUCRALFATE 1 GM/10 ML UDC NG SCH ×2 (06:54→17:00)
[2021-01-11] MEDS: METOCLOPRAMIDE HCL 10 MG/2 ML VIAL IVP SCH ×3 (06:54→17:00)
[2021-01-11] MEDS: LEVOTHYROXINE SODIUM 0.05 MG TABLET PO SCH (06:54)
[2021-01-11 06:56] LABS: ALBUMIN 2.3 g/dL (3.4-4.8); CREATININE 2.04 mg/dL (0.55-1.30); POTASSIUM 3.4 mmol/L (3.5-5.1); TOTAL BILIRUBIN 2.4 mg/dL (0.0-1.0)
[2021-01-11] MEDS: PANTOPRAZOLE SODIUM 40 MG/VIAL (PROTONIX) IVP SCH ×2 (09:00→21:00)
[2021-01-11] MEDS: NYSTATIN 15 GM TOPICAL POWDER TP SCH ×2 (09:00→21:00)
[2021-01-11] MEDS: METOPROLOL TARTRATE 25 MG TABLET PO SCH ×2 (09:00→21:00)
[2021-01-11] MEDS: TAMSULOSIN HCL 0.4 MG CAP PO SCH (09:00)
[2021-01-11] MEDS: POLYETHYLENE GLYCOL 3350, 17 GM/ POWD.PACK PO SCH ×2 (09:00→21:00)
[2021-01-11] MEDS: CALCIUM CARBONATE/VITAMIN D3 1 TAB TABLET PO SCH (09:00)
[2021-01-11] MEDS: POTASSIUM CHLORIDE 20 MEQ/PKT PACKET PO SCH ×2 (09:00→21:00)
[2021-01-11] MEDS: NACL 0.9% 1,000 ML IV SCH (09:45)
[2021-01-11] MEDS: METOPROLOL TARTRATE 5 MG/5 ML AMPUL IVP PRN (13:02)
[2021-01-11] MEDS: NOREPINEPHRINE BITARTRATE 16 MG in NS 234 ML IV PRN (15:13)
[2021-01-11] MEDS: ATORVASTATIN 20 MG TABLET PO SCH (21:00)
[2021-01-11] MEDS: CEFEPIME 1 GM in D5W 50 ML IV SCH (21:00)
[2021-01-12] VITALS (33 sets, daily range): BP systolic 98–148
[2021-01-12] MEDS: MORPHINE SULFATE IN 0.9 % NACL 100 ML IV PRN
[2021-01-12] MEDS: DEXMEDETOMIDINE HCL 400 MCG in NS 96 ML IV PRN ×3 (05:30→18:41)
[2021-01-12 06:31] LABS: HEMATOCRIT 24.9 % (36-48); HEMOGLOBIN 8.4 g/dL (12.0-16.0); MEAN CORPUSCULAR HEMOGLOBIN 29 pg (27-31); MEAN CORPUSCULAR HGB CONC 34 % (32-36); MEAN CORPUSCULAR VOLUME 85 fL (79.0-98.0); PLATELET COUNT (AUTO) 103 K/uL (130-430); RED BLOOD CELL COUNT(AUTO) 2.94 MIL/uL (4.2-6.2)
[2021-01-12] MEDS: METOCLOPRAMIDE HCL 10 MG/2 ML VIAL IVP SCH (06:46)
[2021-01-12] MEDS: LEVOTHYROXINE SODIUM 0.05 MG TABLET PO SCH (06:47)
[2021-01-12] MEDS: SUCRALFATE 1 GM/10 ML UDC NG SCH ×2 (06:47→18:07)
[2021-01-12 07:42] LABS: CALCIUM 9.4 mg/dL (8.4-11.0); CREATININE 2.29 mg/dL (0.55-1.30); POTASSIUM 3.8 mmol/L (3.5-5.1)
[2021-01-12] MEDS: TAMSULOSIN HCL 0.4 MG CAP PO SCH (09:00)
[2021-01-12] MEDS: POTASSIUM CHLORIDE 20 MEQ/PKT PACKET PO SCH ×2 (09:00→22:46)
[2021-01-12] MEDS: METOPROLOL TARTRATE 25 MG TABLET PO SCH ×2 (09:00→21:00)
[2021-01-12] MEDS: CALCIUM CARBONATE/VITAMIN D3 1 TAB TABLET PO SCH (09:00)
[2021-01-12] MEDS: POLYETHYLENE GLYCOL 3350, 17 GM/ POWD.PACK PO SCH ×2 (09:00→22:47)
[2021-01-12] MEDS: PANTOPRAZOLE SODIUM 40 MG/VIAL (PROTONIX) IVP SCH ×2 (09:03→22:46)
[2021-01-12] MEDS: NYSTATIN 15 GM TOPICAL POWDER TP SCH ×2 (09:07→22:50)
[2021-01-12] MEDS: NACL 0.9% 1,000 ML IV SCH (09:18)
[2021-01-12] MEDS ORDERED: HEPARIN SODIUM,PORCINE 5,000 UNITS/ML VIAL ONE (12:04)
[2021-01-12 13:21] LABS: FERRITIN 1647 ng/mL (15-150)
[2021-01-12 13:23] LABS: ALPHA-1-ANTITRYPSIN, S 245 mg/dL (101-187)
[2021-01-12 14:40] LABS: BAND % (MANUAL) 28 % (0-6); BASOPHILS % (MANUAL) 0 % (0-2); EOSINOPHILS % (MANUAL) 2 % (0-7); LYMPHOCYTES % (MANUAL) 11 % (20-46); MONOCYTES % (MANUAL) 10 % (0-11); WBC MORPHOLOGY TOXIC GRANULATION
[2021-01-12] MEDS: NOREPINEPHRINE BITARTRATE 16 MG in NS 234 ML IV PRN (20:44)
[2021-01-12] MEDS: CEFEPIME 1 GM in D5W 50 ML IV SCH (22:44)
[2021-01-12] MEDS: ATORVASTATIN 20 MG TABLET PO SCH (22:47)
[2021-01-13] VITALS (31 sets, daily range): BP systolic 105–207
[2021-01-13] MEDS ORDERED: DEXMEDETOMIDINE HCL 200 MCG/2 ML VIAL IV ONE (00:50)
[2021-01-13] MEDS: DEXMEDETOMIDINE HCL 400 MCG in NS 96 ML IV PRN ×2 (00:52→15:46)
[2021-01-13 06:41] LABS: CREATININE 2.11 mg/dL (0.55-1.30); POTASSIUM 3.6 mmol/L (3.5-5.1)
[2021-01-13] MEDS: LEVOTHYROXINE SODIUM 0.05 MG TABLET PO SCH (07:00)
[2021-01-13] MEDS: SUCRALFATE 1 GM/10 ML UDC NG SCH ×2 (07:00→18:30)
[2021-01-13] MEDS: TAMSULOSIN HCL 0.4 MG CAP PO SCH (09:49)
[2021-01-13] MEDS: POTASSIUM CHLORIDE 20 MEQ/PKT PACKET PO SCH ×2 (09:49→20:57)
[2021-01-13] MEDS: PANTOPRAZOLE SODIUM 40 MG/VIAL (PROTONIX) IVP SCH ×2 (09:49→20:57)
[2021-01-13] MEDS: NYSTATIN 15 GM TOPICAL POWDER TP SCH ×2 (09:50→20:59)
[2021-01-13] MEDS: POLYETHYLENE GLYCOL 3350, 17 GM/ POWD.PACK PO SCH ×2 (09:50→20:59)
[2021-01-13] MEDS: METOPROLOL TARTRATE 25 MG TABLET PO SCH ×2 (09:50→20:59)
[2021-01-13] MEDS: CALCIUM CARBONATE/VITAMIN D3 1 TAB TABLET PO SCH (09:50)
[2021-01-13 10:19] LABS: BASOPHILS % (AUTO) 0.4 % (0.0-2.0); EOSINOPHILS # (AUTO) 0.2 K/uL (0.0-0.4); EOSINOPHILS % (AUTO) 3.5 % (0.0-4.0); HEMOGLOBIN 7.4 g/dL (12.0-16.0); LYMPHOCYTES # (AUTO) 0.1 K/uL (1.0-5.5); LYMPHOCYTES % (AUTO) 2.9 % (20.5-51.5); MEAN CORPUSCULAR HEMOGLOBIN 28 pg (27-31); MEAN CORPUSCULAR HGB CONC 34 % (32-36); MEAN CORPUSCULAR VOLUME 84 fL (79.0-98.0); MONOCYTES # (AUTO) 0.4 K/uL (0.0-1.0); MONOCYTES % (AUTO) 8.8 % (1.7-9.3); NEUTROPHILS # (AUTO) 4.1 K/uL (1.8-7.7); PLATELET COUNT (AUTO) 79 K/uL (130-430); RED BLOOD CELL COUNT(AUTO) 2.61 MIL/uL (4.2-6.2); RED CELL DISTRIBUTION WIDTH 18.7 % (9.0-15.0); WHITE BLOOD COUNT (AUTO) 4.9 K/uL (4.8-10.8)
[2021-01-13 10:32] LABS: HEMATOCRIT 21.9 % (36-48); NEUTROPHILS % (AUTO) 84.4 % (40.0-70.0)
[2021-01-13] MEDS: NACL 0.9% 1,000 ML IV SCH (15:43)
[2021-01-13] MEDS: NOREPINEPHRINE BITARTRATE 16 MG in NS 234 ML IV PRN (15:44)
[2021-01-13] MEDS: CEFEPIME 1 GM in D5W 50 ML IV SCH (20:56)
[2021-01-13] MEDS: ATORVASTATIN 20 MG TABLET PO SCH (20:58)
[2021-01-14] VITALS (21 sets, daily range): BP systolic 102–190
[2021-01-14 08:45] LABS: CALCIUM 9.3 mg/dL (8.4-11.0); CREATININE 2.25 mg/dL (0.55-1.30); POTASSIUM 3.6 mmol/L (3.5-5.1)
[2021-01-14] MEDS: PANTOPRAZOLE SODIUM 40 MG/VIAL (PROTONIX) IVP SCH ×2 (09:01→23:41)
[2021-01-14] MEDS: CALCIUM CARBONATE/VITAMIN D3 1 TAB TABLET PO SCH (09:01)
[2021-01-14] MEDS: SUCRALFATE 1 GM/10 ML UDC NG SCH ×2 (09:01→17:20)
[2021-01-14] MEDS: POLYETHYLENE GLYCOL 3350, 17 GM/ POWD.PACK PO SCH ×2 (09:02→23:45)
[2021-01-14] MEDS: POTASSIUM CHLORIDE 20 MEQ/PKT PACKET PO SCH ×2 (09:03→23:42)
[2021-01-14] MEDS: METOPROLOL TARTRATE 25 MG TABLET PO SCH ×2 (09:04→23:44)
[2021-01-14 09:05] LABS: BASOPHILS % (AUTO) 0.5 % (0.0-2.0); EOSINOPHILS # (AUTO) 0.2 K/uL (0.0-0.4); EOSINOPHILS % (AUTO) 2.8 % (0.0-4.0); HEMATOCRIT 24.2 % (36-48); HEMOGLOBIN 8.2 g/dL (12.0-16.0); LYMPHOCYTES # (AUTO) 0.1 K/uL (1.0-5.5); LYMPHOCYTES % (AUTO) 2.1 % (20.5-51.5); MEAN CORPUSCULAR HEMOGLOBIN 28 pg (27-31); MEAN CORPUSCULAR HGB CONC 34 % (32-36); MEAN CORPUSCULAR VOLUME 84 fL (79.0-98.0); MONOCYTES # (AUTO) 0.5 K/uL (0.0-1.0); MONOCYTES % (AUTO) 7.6 % (1.7-9.3); NEUTROPHILS # (AUTO) 6.1 K/uL (1.8-7.7); PLATELET COUNT (AUTO) 87 K/uL (130-430); RED BLOOD CELL COUNT(AUTO) 2.89 MIL/uL (4.2-6.2); RED CELL DISTRIBUTION WIDTH 19.4 % (9.0-15.0)
[2021-01-14] MEDS: TAMSULOSIN HCL 0.4 MG CAP PO SCH (09:05)
[2021-01-14] MEDS: LEVOTHYROXINE SODIUM 0.05 MG TABLET PO SCH (09:05)
[2021-01-14] MEDS: NACL 0.9% 1,000 ML IV SCH (09:06)
[2021-01-14] MEDS: NYSTATIN 15 GM TOPICAL POWDER TP SCH ×2 (09:17→22:30)
[2021-01-14] MEDS ORDERED: METOCLOPRAMIDE HCL 10 MG/2 ML VIAL IVP PRN (10:45)
[2021-01-14] MEDS ORDERED: ALBUMIN HUMAN 25% 100 ML IV ONE ×2 (14:13→14:15)
[2021-01-14] MEDS ORDERED: ALBUMIN HUMAN 25% 50 ML IV ONE (14:18)
[2021-01-14] MEDS: METOPROLOL TARTRATE 5 MG/5 ML AMPUL IVP PRN (14:29)
[2021-01-14] MEDS ORDERED: NOREPINEPHRINE 4 MG/4 ML VIAL IV ONE ×2 (14:42)
[2021-01-14] MEDS ORDERED: HEPARIN SODIUM,PORCINE 5,000 UNITS/ML VIAL MC ONE (14:45)
[2021-01-14] MEDS: METOCLOPRAMIDE HCL 10 MG/2 ML VIAL IVP SCH ×2 (15:11→23:46)
[2021-01-14] MEDS: NOREPINEPHRINE BITARTRATE 16 MG in NS 234 ML IV PRN (17:22)
[2021-01-14] MEDS: DEXMEDETOMIDINE HCL 400 MCG in NS 96 ML IV PRN (17:24)
[2021-01-14] MEDS: ATORVASTATIN 20 MG TABLET PO SCH (22:30)
[2021-01-14] MEDS: CEFEPIME 1 GM in D5W 50 ML IV SCH (22:30)
[2021-01-15] VITALS (30 sets, daily range): BP systolic 85–165
[2021-01-15] MEDS: MORPHINE SULFATE IN 0.9 % NACL 100 ML IV PRN ×2 (03:17→20:44)
[2021-01-15] MEDS: NOREPINEPHRINE BITARTRATE 16 MG in NS 234 ML IV PRN ×2 (03:20→14:27)
[2021-01-15] MEDS: DEXMEDETOMIDINE HCL 400 MCG in NS 96 ML IV PRN ×2 (03:47→12:37)
[2021-01-15] MEDS: METOCLOPRAMIDE HCL 10 MG/2 ML VIAL IVP SCH ×3 (06:00→21:45)
[2021-01-15 06:54] LABS: BASOPHILS # (AUTO) 0.1 K/uL (0.0-0.2); BASOPHILS % (AUTO) 0.7 % (0.0-2.0); EOSINOPHILS # (AUTO) 0.3 K/uL (0.0-0.4); EOSINOPHILS % (AUTO) 2.7 % (0.0-4.0); LYMPHOCYTES # (AUTO) 0.5 K/uL (1.0-5.5); LYMPHOCYTES % (AUTO) 4.8 % (20.5-51.5); MEAN CORPUSCULAR HEMOGLOBIN 29 pg (27-31); MEAN CORPUSCULAR HGB CONC 35 % (32-36); MEAN CORPUSCULAR VOLUME 84 fL (79.0-98.0); MONOCYTES # (AUTO) 0.9 K/uL (0.0-1.0); NEUTROPHILS # (AUTO) 8.4 K/uL (1.8-7.7); NEUTROPHILS % (AUTO) 82.8 % (40.0-70.0); PLATELET COUNT (AUTO) 120 K/uL (130-430); RED BLOOD CELL COUNT(AUTO) 2.74 MIL/uL (4.2-6.2); RED CELL DISTRIBUTION WIDTH 19.1 % (9.0-15.0); WHITE BLOOD COUNT (AUTO) 10.2 K/uL (4.8-10.8)
[2021-01-15 08:18] LABS: CALCIUM 9.9 mg/dL (8.4-11.0); CREATININE 2.2 mg/dL (0.55-1.30); POTASSIUM 3.7 mmol/L (3.5-5.1)
[2021-01-15] MEDS: METOPROLOL TARTRATE 25 MG TABLET PO SCH ×2 (09:00→20:47)
[2021-01-15] MEDS: NYSTATIN 15 GM TOPICAL POWDER TP SCH ×2 (09:21→20:48)
[2021-01-15] MEDS: POTASSIUM CHLORIDE 20 MEQ/PKT PACKET PO SCH ×2 (10:02→20:46)
[2021-01-15] MEDS: PANTOPRAZOLE SODIUM 40 MG/VIAL (PROTONIX) IVP SCH ×2 (10:02→20:46)
[2021-01-15] MEDS: POLYETHYLENE GLYCOL 3350, 17 GM/ POWD.PACK PO SCH ×2 (10:03→20:47)
[2021-01-15] MEDS: SUCRALFATE 1 GM/10 ML UDC NG SCH ×2 (10:03→17:00)
[2021-01-15] MEDS: NACL 0.9% 1,000 ML IV SCH ×2 (10:03→14:28)
[2021-01-15] MEDS: TAMSULOSIN HCL 0.4 MG CAP PO SCH (10:03)
[2021-01-15] MEDS: CALCIUM CARBONATE/VITAMIN D3 1 TAB TABLET PO SCH (10:03)
[2021-01-15] MEDS: LEVOTHYROXINE SODIUM 0.05 MG TABLET PO SCH (10:03)
[2021-01-15] MEDS: CEFEPIME 1 GM in D5W 50 ML IV SCH (20:45)
[2021-01-15] MEDS: ATORVASTATIN 20 MG TABLET PO SCH (20:46)
[2021-01-16] VITALS (28 sets, daily range): BP systolic 80–135
[2021-01-16] MEDS: METOCLOPRAMIDE HCL 10 MG/2 ML VIAL IVP SCH ×3 (05:23→18:15)
[2021-01-16 06:44] LABS: BASOPHILS % (AUTO) 0.1 % (0.0-2.0); EOSINOPHILS # (AUTO) 0.2 K/uL (0.0-0.4); EOSINOPHILS % (AUTO) 1.6 % (0.0-4.0); HEMATOCRIT 24.2 % (36-48); HEMOGLOBIN 8.1 g/dL (12.0-16.0); LYMPHOCYTES # (AUTO) 0.2 K/uL (1.0-5.5); LYMPHOCYTES % (AUTO) 1.5 % (20.5-51.5); MEAN CORPUSCULAR HEMOGLOBIN 28 pg (27-31); MEAN CORPUSCULAR HGB CONC 33 % (32-36); MEAN CORPUSCULAR VOLUME 85 fL (79.0-98.0); MONOCYTES # (AUTO) 0.7 K/uL (0.0-1.0); MONOCYTES % (AUTO) 6.3 % (1.7-9.3); NEUTROPHILS # (AUTO) 10.5 K/uL (1.8-7.7); NEUTROPHILS % (AUTO) 90.5 % (40.0-70.0); PLATELET COUNT (AUTO) 124 K/uL (130-430); RED BLOOD CELL COUNT(AUTO) 2.85 MIL/uL (4.2-6.2); RED CELL DISTRIBUTION WIDTH 19.6 % (9.0-15.0); WHITE BLOOD COUNT (AUTO) 11.6 K/uL (4.8-10.8)
[2021-01-16 07:00] LABS: CALCIUM 9.1 mg/dL (8.4-11.0); CREATININE 2.46 mg/dL (0.55-1.30); POTASSIUM 3.7 mmol/L (3.5-5.1)
[2021-01-16] MEDS ORDERED: DEXTROSE 50% JECT 50 ML DISP.SYRIN IVP PRN (08:15)
[2021-01-16] MEDS: LEVOTHYROXINE SODIUM 0.05 MG TABLET PO SCH (09:02)
[2021-01-16] MEDS: TAMSULOSIN HCL 0.4 MG CAP PO SCH (09:03)
[2021-01-16] MEDS: PANTOPRAZOLE SODIUM 40 MG/VIAL (PROTONIX) IVP SCH ×2 (09:03→20:28)
[2021-01-16] MEDS: POTASSIUM CHLORIDE 20 MEQ/PKT PACKET PO SCH ×2 (09:03→20:28)
[2021-01-16] MEDS: POLYETHYLENE GLYCOL 3350, 17 GM/ POWD.PACK PO SCH ×2 (09:03→20:28)
[2021-01-16] MEDS: CALCIUM CARBONATE/VITAMIN D3 1 TAB TABLET PO SCH (09:04)
[2021-01-16] MEDS: NYSTATIN 15 GM TOPICAL POWDER TP SCH ×2 (09:05→20:23)
[2021-01-16 09:18] LABS: PHOSPHORUS 2.7 mg/dL (2.7-4.5)
[2021-01-16] MEDS: METOPROLOL TARTRATE 25 MG TABLET PO SCH ×2 (09:21→20:28)
[2021-01-16] MEDS ORDERED: METOPROLOL TARTRATE 50 MG TABLET ONE (10:19)
[2021-01-16] MEDS ORDERED: METOPROLOL TARTRATE 25 MG TABLET ONE (10:27)
[2021-01-16] MEDS: DEXMEDETOMIDINE HCL 400 MCG in NS 96 ML IV PRN ×3 (12:43→18:16)
[2021-01-16] MEDS ORDERED: HEPARIN SODIUM,PORCINE 5,000 UNITS/ML VIAL ONE (18:49)
[2021-01-16] MEDS ORDERED: HEPARIN SODIUM,PORCINE 5,000 UNITS/ML VIAL MC ONE ×2 (19:00)
[2021-01-16] MEDS: ATORVASTATIN 20 MG TABLET PO SCH (20:28)
[2021-01-16] MEDS: CEFEPIME 1 GM in D5W 50 ML IV SCH (20:29)
[2021-01-16] MEDS: FAT EMULSIONS 250 ML IV SCH (20:51)
[2021-01-16] MEDS ORDERED: [UNRECOGNIZED DRUG - OTHER] IV SCH ×8 (21:00)
[2021-01-16] MEDS ORDERED: *TPN PER PHARMACY XX PRN (21:00)
[2021-01-16] MEDS ORDERED: SODIUM ACETATE IV SCH ×8 (21:00)
[2021-01-16] MEDS ORDERED: K PHOS IV SCH ×8 (21:00)
[2021-01-16] MEDS ORDERED: TPN CENTRAL IV SCH ×8 (21:00)
[2021-01-17] VITALS (31 sets, daily range): BP systolic 86–184
[2021-01-17] MEDS: DEXMEDETOMIDINE HCL 400 MCG in NS 96 ML IV PRN ×3 (00:09→22:50)
[2021-01-17] MEDS: METOCLOPRAMIDE HCL 10 MG/2 ML VIAL IVP SCH ×4 (00:35→18:44)
[2021-01-17] MEDS: LEVOTHYROXINE SODIUM 0.05 MG TABLET PO SCH (06:13)
[2021-01-17 06:49] LABS: HEMATOCRIT 24.4 % (36-48); HEMOGLOBIN 8.2 g/dL (12.0-16.0); MEAN CORPUSCULAR HEMOGLOBIN 29 pg (27-31); MEAN CORPUSCULAR HGB CONC 34 % (32-36); MEAN CORPUSCULAR VOLUME 87 fL (79.0-98.0); PLATELET COUNT (AUTO) 137 K/uL (130-430); RED BLOOD CELL COUNT(AUTO) 2.81 MIL/uL (4.2-6.2); RED CELL DISTRIBUTION WIDTH 19.9 % (9.0-15.0); WHITE BLOOD COUNT (AUTO) 14.7 K/uL (4.8-10.8)
[2021-01-17 08:03] LABS: ALBUMIN 2.2 g/dL (3.4-4.8); CALCIUM 9.5 mg/dL (8.4-11.0); CREATININE 2.35 mg/dL (0.55-1.30); PHOSPHORUS 2.6 mg/dL (2.7-4.5); POTASSIUM 3.7 mmol/L (3.5-5.1); TOTAL BILIRUBIN 2.8 mg/dL (0.0-1.0)
[2021-01-17] MEDS: TAMSULOSIN HCL 0.4 MG CAP PO SCH (08:19)
[2021-01-17] MEDS: POTASSIUM CHLORIDE 20 MEQ/PKT PACKET PO SCH ×2 (08:19→21:48)
[2021-01-17] MEDS: METOPROLOL TARTRATE 25 MG TABLET PO SCH ×2 (08:19→21:49)
[2021-01-17] MEDS: CALCIUM CARBONATE/VITAMIN D3 1 TAB TABLET PO SCH (08:22)
[2021-01-17] MEDS: POLYETHYLENE GLYCOL 3350, 17 GM/ POWD.PACK PO SCH ×2 (08:22→21:48)
[2021-01-17 13:07] LABS: BAND % (MANUAL) 5 % (0-6); BASOPHILS % (MANUAL) 0 % (0-2); EOSINOPHILS % (MANUAL) 3 % (0-7); LYMPHOCYTES % (MANUAL) 4 % (20-46); MONOCYTES % (MANUAL) 2 % (0-11)
[2021-01-17] MEDS: PANTOPRAZOLE SODIUM 40 MG/VIAL (PROTONIX) IVP SCH ×2 (13:24→21:48)
[2021-01-17] MEDS: NYSTATIN 15 GM TOPICAL POWDER TP SCH ×2 (13:25→21:48)
[2021-01-17] MEDS: NACL 0.9% 1,000 ML IV SCH (13:25)
[2021-01-17] MEDS ORDERED: K PHOS 30 MM in NS 250 ML IV ONE (15:00)
[2021-01-17] MEDS: INSULIN REGULAR, HUMAN 100 UNITS/ML, 10 ML VIAL (humuLIN R) SUBCUT PRN (18:47)
[2021-01-17] MEDS ORDERED: [UNRECOGNIZED DRUG - OTHER] IV SCH ×7 (21:00)
[2021-01-17] MEDS ORDERED: K PHOS IV SCH ×7 (21:00)
[2021-01-17] MEDS ORDERED: SODIUM ACETATE IV SCH ×7 (21:00)
[2021-01-17] MEDS ORDERED: TPN CENTRAL IV SCH ×7 (21:00)
[2021-01-17] MEDS ORDERED: MAGNESIUM SULFATE IV SCH ×7 (21:00)
[2021-01-17] MEDS: CEFEPIME 1 GM in D5W 50 ML IV SCH (21:42)
[2021-01-17] MEDS: ATORVASTATIN 20 MG TABLET PO SCH (21:48)
[2021-01-17] MEDS: FAT EMULSIONS 250 ML IV SCH (21:49)
[2021-01-17] MEDS: MORPHINE SULFATE IN 0.9 % NACL 100 ML IV PRN (22:54)
[2021-01-18] VITALS (27 sets, daily range): BP systolic 83–165
[2021-01-18] MEDS: METOCLOPRAMIDE HCL 10 MG/2 ML VIAL IVP SCH ×5 (00:52→23:54)
[2021-01-18] MEDS: INSULIN REGULAR, HUMAN 100 UNITS/ML, 10 ML VIAL (humuLIN R) SUBCUT PRN ×4 (00:54→18:40)
[2021-01-18] MEDS: DEXMEDETOMIDINE HCL 400 MCG in NS 96 ML IV PRN ×3 (07:58→19:52)
[2021-01-18] MEDS: NOREPINEPHRINE BITARTRATE 16 MG in NS 234 ML IV PRN ×2 (08:02→16:18)
[2021-01-18] MEDS: TAMSULOSIN HCL 0.4 MG CAP PO SCH (08:36)
[2021-01-18] MEDS: LEVOTHYROXINE SODIUM 0.05 MG TABLET PO SCH (08:36)
[2021-01-18] MEDS: POTASSIUM CHLORIDE 20 MEQ/PKT PACKET PO SCH ×2 (08:36→20:51)
[2021-01-18] MEDS: PANTOPRAZOLE SODIUM 40 MG/VIAL (PROTONIX) IVP SCH ×2 (08:37→20:50)
[2021-01-18] MEDS: POLYETHYLENE GLYCOL 3350, 17 GM/ POWD.PACK PO SCH ×2 (08:38→20:53)
[2021-01-18] MEDS: METOPROLOL TARTRATE 25 MG TABLET PO SCH ×2 (08:38→20:52)
[2021-01-18] MEDS: CALCIUM CARBONATE/VITAMIN D3 1 TAB TABLET PO SCH (08:39)
[2021-01-18] MEDS: NYSTATIN 15 GM TOPICAL POWDER TP SCH ×2 (08:40→20:54)
[2021-01-18 09:09] LABS: ALBUMIN 2.1 g/dL (3.4-4.8); CALCIUM 9.4 mg/dL (8.4-11.0); CREATININE 2.69 mg/dL (0.55-1.30); PHOSPHORUS 3.1 mg/dL (2.7-4.5); TOTAL BILIRUBIN 2.2 mg/dL (0.0-1.0)
[2021-01-18] MEDS: NACL 0.9% 1,000 ML IV SCH (09:45)
[2021-01-18] MEDS: MORPHINE SULFATE IN 0.9 % NACL 100 ML IV PRN (15:45)
[2021-01-18] MEDS: CEFEPIME 1 GM in D5W 50 ML IV SCH (20:51)
[2021-01-18] MEDS: ATORVASTATIN 20 MG TABLET PO SCH (20:53)
[2021-01-18] MEDS: FAT EMULSIONS 250 ML IV SCH (20:55)
[2021-01-18] MEDS ORDERED: K PHOS IV SCH ×8 (21:00)
[2021-01-18] MEDS ORDERED: MAGNESIUM SULFATE IV SCH ×8 (21:00)
[2021-01-18] MEDS ORDERED: SODIUM ACETATE IV SCH ×8 (21:00)
[2021-01-18] MEDS ORDERED: [UNRECOGNIZED DRUG - OTHER] IV SCH ×8 (21:00)
[2021-01-18] MEDS ORDERED: TPN CENTRAL IV SCH ×8 (21:00)
[2021-01-19] VITALS (11 sets, daily range): BP systolic 82–153
[2021-01-19] MEDS ORDERED: PHENYLEPHRINE HCL 10 MG/ML VIAL (NEOSYNEPHRINE) ONE ×2 (00:53→04:00)
[2021-01-19] MEDS: NOREPINEPHRINE BITARTRATE 16 MG in NS 234 ML IV PRN ×4 (01:28→09:30)
[2021-01-19] MEDS: PHENYLEPHRINE HCL 100 MG in NS 240 ML IV PRN ×2 (01:29→06:57)
[2021-01-19] MEDS: MORPHINE SULFATE IN 0.9 % NACL 100 ML IV PRN (01:30)
[2021-01-19] MEDS ORDERED: ALBUMIN HUMAN 25% 250 ML IV ONE (02:19)
[2021-01-19] MEDS ORDERED: ALBUMIN HUMAN 25% 200 ML IV ONE (02:30)
[2021-01-19] MEDS ORDERED: ALBUMIN HUMAN 25% 50 ML IV ONE (02:30)
[2021-01-19] MEDS ORDERED: NS 500 ML IV ONE (02:30)
[2021-01-19] MEDS ORDERED: NOREPINEPHRINE 4 MG/4 ML VIAL IV ONE ×3 (03:55→07:38)
[2021-01-19] MEDS ORDERED: MEROPENEM 500 MG VIAL IV ONE (05:33)
[2021-01-19] MEDS: MEROPENEM 500 MG in NS 50 ML IV SCH ×2 (05:40→21:01)
[2021-01-19] MEDS: METOCLOPRAMIDE HCL 10 MG/2 ML VIAL IVP SCH ×2 (05:43→14:18)
[2021-01-19 06:32] LABS: BASOPHILS % (AUTO) 0.3 % (0.0-2.0); EOSINOPHILS # (AUTO) 0.1 K/uL (0.0-0.4); HEMATOCRIT 24.6 % (36-48); HEMOGLOBIN 8.2 g/dL (12.0-16.0); LYMPHOCYTES # (AUTO) 0.4 K/uL (1.0-5.5); MEAN CORPUSCULAR HEMOGLOBIN 28 pg (27-31); MEAN CORPUSCULAR HGB CONC 33 % (32-36); MEAN CORPUSCULAR VOLUME 84 fL (79.0-98.0); MONOCYTES # (AUTO) 0.5 K/uL (0.0-1.0); MONOCYTES % (AUTO) 3.4 % (1.7-9.3); NEUTROPHILS # (AUTO) 13.1 K/uL (1.8-7.7); NEUTROPHILS % (AUTO) 92.3 % (40.0-70.0); PLATELET COUNT (AUTO) 130 K/uL (130-430); RED BLOOD CELL COUNT(AUTO) 2.92 MIL/uL (4.2-6.2); RED CELL DISTRIBUTION WIDTH 20.7 % (9.0-15.0); WHITE BLOOD COUNT (AUTO) 14.2 K/uL (4.8-10.8)
[2021-01-19] MEDS: INSULIN REGULAR, HUMAN 100 UNITS/ML, 10 ML VIAL (humuLIN R) SUBCUT PRN (06:32)
[2021-01-19] MEDS: LEVOTHYROXINE SODIUM 0.05 MG TABLET PO SCH (06:33)
[2021-01-19] MEDS: TAMSULOSIN HCL 0.4 MG CAP PO SCH (09:00)
[2021-01-19] MEDS: CALCIUM CARBONATE/VITAMIN D3 1 TAB TABLET PO SCH (09:00)
[2021-01-19] MEDS: METOPROLOL TARTRATE 25 MG TABLET PO SCH ×2 (09:00→20:59)
[2021-01-19] MEDS: POLYETHYLENE GLYCOL 3350, 17 GM/ POWD.PACK PO SCH ×2 (09:00→20:59)
[2021-01-19] MEDS: POTASSIUM CHLORIDE 20 MEQ/PKT PACKET PO SCH ×2 (09:00→20:59)
[2021-01-19 09:07] LABS: ALBUMIN 3.2 g/dL (3.4-4.8); CALCIUM 9.1 mg/dL (8.4-11.0); CREATININE 2.38 mg/dL (0.55-1.30); PHOSPHORUS 3.3 mg/dL (2.7-4.5); POTASSIUM 4.3 mmol/L (3.5-5.1); TOTAL BILIRUBIN 2.7 mg/dL (0.0-1.0)
[2021-01-19] MEDS: NACL 0.9% 1,000 ML IV SCH (09:45)
[2021-01-19] MEDS: NYSTATIN 15 GM TOPICAL POWDER TP SCH ×2 (10:25→20:59)
[2021-01-19] MEDS: DEXMEDETOMIDINE HCL 400 MCG in NS 96 ML IV PRN ×2 (13:20→17:07)
[2021-01-19] MEDS: NOREPINEPHRINE BITARTRATE 32 MG in NS 218 ML IV SCH ×2 (14:14→17:04)
[2021-01-19] MEDS: PANTOPRAZOLE SODIUM 40 MG/VIAL (PROTONIX) IVP SCH ×2 (14:18→21:03)
[2021-01-19] MEDS: ATORVASTATIN 20 MG TABLET PO SCH (20:59)
[2021-01-19] MEDS ORDERED: SODIUM ACETATE IV SCH ×8 (21:00)
[2021-01-19] MEDS ORDERED: TPN CENTRAL IV SCH ×8 (21:00)
[2021-01-19] MEDS ORDERED: K PHOS IV SCH ×8 (21:00)
[2021-01-19] MEDS ORDERED: MAGNESIUM SULFATE IV SCH ×8 (21:00)
[2021-01-19] MEDS ORDERED: [UNRECOGNIZED DRUG - OTHER] IV SCH ×8 (21:00)
[2021-01-19] MEDS: CEFEPIME 1 GM in D5W 50 ML IV SCH (21:01)
[2021-01-19] MEDS: FAT EMULSIONS 250 ML IV SCH (21:02)
[2021-01-19] MEDS ORDERED: NALOXONE HCL 0.4 MG/ML AMP (NARCAN) IVP PRN (21:15)
[2021-01-19] MEDS ORDERED: MORPHINE SULFATE IN 0.9 % NACL 100 ML IV PRN (21:15)
[2021-01-20] MEDS: METOCLOPRAMIDE HCL 10 MG/2 ML VIAL IVP SCH (00:55)
[2021-01-20] MEDS: INSULIN REGULAR, HUMAN 100 UNITS/ML, 10 ML VIAL (humuLIN R) SUBCUT PRN (00:56)
[2021-01-20 03:00] VITALS: BP_SYST 123
[2021-01-20] MEDS ORDERED: NORMAL SALINE 10 ML VIAL IVP ONE (06:26)
[2021-01-20] MEDS ORDERED: EPINEPHrine JECT 0.1 MG/ML SYR IVP ONE (06:26)
== END 2021-01-20 06:27 | DRG 130 ==
LOC: SED 15:43 → STU 23:01 → SIC 12-14 01:35 → STU 12-14 02:13 → SIC 12-21 04:34
PROVIDERS: ADMIT Internal Medicine; ATTEND Internal Medicine
PROC: 5A1955Z Respiratory Ventilation, Greater than 96 Consecutive Hours (ICD-10-PCS; principal; 2020-12-21)
PROC: 5A12012 Performance of Cardiac Output, Single, Manual (ICD-10-PCS; 2020-12-21)
PROC: 0BH17EZ Insertion of Endotracheal Airway into Trachea, Via Natural or Artificial Opening (ICD-10-PCS; 2020-12-21)
PROC: 02HV33Z Insertion of Infusion Device into Superior Vena Cava, Percutaneous Approach (ICD-10-PCS; 2020-12-23)
PROC: B548ZZA Ultrasonography of Superior Vena Cava, Guidance (ICD-10-PCS; 2020-12-23)
PROC: 5A1D70Z Performance of Urinary Filtration, Intermittent, Less than 6 Hours Per Day (ICD-10-PCS; 2020-12-23)
PROC: 5A1D70Z Performance of Urinary Filtration, Intermittent, Less than 6 Hours Per Day (ICD-10-PCS; 2020-12-24)
PROC: 5A1D70Z Performance of Urinary Filtration, Intermittent, Less than 6 Hours Per Day (ICD-10-PCS; 2020-12-26)
PROC: 0DB78ZX Excision of Stomach, Pylorus, Via Natural or Artificial Opening Endoscopic, Diagnostic (ICD-10-PCS; 2020-12-29)
PROC: 30233N1 Transfusion of Nonautologous Red Blood Cells into Peripheral Vein, Percutaneous Approach (ICD-10-PCS; 2020-12-29)
PROC: 5A1D70Z Performance of Urinary Filtration, Intermittent, Less than 6 Hours Per Day (ICD-10-PCS; 2020-12-29)
PROC: 5A1D70Z Performance of Urinary Filtration, Intermittent, Less than 6 Hours Per Day (ICD-10-PCS; 2020-12-31)
PROC: 5A1D70Z Performance of Urinary Filtration, Intermittent, Less than 6 Hours Per Day (ICD-10-PCS; 2021-01-02)
PROC: 5A1D70Z Performance of Urinary Filtration, Intermittent, Less than 6 Hours Per Day (ICD-10-PCS; 2021-01-04)
PROC: 5A1D70Z Performance of Urinary Filtration, Intermittent, Less than 6 Hours Per Day (ICD-10-PCS; 2021-01-06)
PROC: 5A1D70Z Performance of Urinary Filtration, Intermittent, Less than 6 Hours Per Day (ICD-10-PCS; 2021-01-09)
PROC: 30233R1 Transfusion of Nonautologous Platelets into Peripheral Vein, Percutaneous Approach (ICD-10-PCS; 2021-01-10)
PROC: 5A1D70Z Performance of Urinary Filtration, Intermittent, Less than 6 Hours Per Day (ICD-10-PCS; 2021-01-11)
PROC: 5A1D70Z Performance of Urinary Filtration, Intermittent, Less than 6 Hours Per Day (ICD-10-PCS; 2021-01-13)
PROC: 5A1D70Z Performance of Urinary Filtration, Intermittent, Less than 6 Hours Per Day (ICD-10-PCS; 2021-01-15)
PROC: 5A1D70Z Performance of Urinary Filtration, Intermittent, Less than 6 Hours Per Day (ICD-10-PCS; 2021-01-17)
DX: J96.01 Acute respiratory failure with hypoxia (principal); I50.33 Acute on chronic diastolic (congestive) heart failure; G93.41 Metabolic encephalopathy; E43 Unspecified severe protein-calorie malnutrition; K29.71 Gastritis, unspecified, with bleeding; G93.1 Anoxic brain damage, not elsewhere classified; I27.20 Pulmonary hypertension, unspecified; D68.9 Coagulation defect, unspecified; D69.6 Thrombocytopenia, unspecified; J44.0 Chronic obstructive pulmonary disease with (acute) lower respiratory infection; R18.8 Other ascites; N17.9 Acute kidney failure, unspecified; D63.8 Anemia in other chronic diseases classified elsewhere; E66.2 Morbid (severe) obesity with alveolar hypoventilation; K59.00 Constipation, unspecified; E78.5 Hyperlipidemia, unspecified; E03.9 Hypothyroidism, unspecified; K21.9 Gastro-esophageal reflux disease without esophagitis; I46.9 Cardiac arrest, cause unspecified; G89.4 Chronic pain syndrome; I48.20 Chronic atrial fibrillation, unspecified; K80.20 Calculus of gallbladder without cholecystitis without obstruction; R33.9 Retention of urine, unspecified; I11.0 Hypertensive heart disease with heart failure; E11.9 Type 2 diabetes mellitus without complications; Z20.822 Contact with and (suspected) exposure to COVID-19; Z91.041 Radiographic dye allergy status; Z91.09 Other allergy status, other than to drugs and biological substances; Z68.1 Body mass index [BMI] 19.9 or less, adult; Z79.890 Hormone replacement therapy; Z79.899 Other long term (current) drug therapy; Z74.01 Bed confinement status; Z79.01 Long term (current) use of anticoagulants; Z99.11 Dependence on respirator [ventilator] status; Z99.81 Dependence on supplemental oxygen
CPT/HCPCS: 36415; 36600; 43239; 71045; 74018; 76376; 76700-TC; 76770; 78278-TC; 78579; 78580-TC; 80048; 80053; 80061; 80074; 80076; 80202; 81000; 82043; 82103; 82378; 82390; 82550; 82553; 82570; 82728; 82803-TC; 82962; 83516; 83540; 83550; 83605; 83690; 83735; 83880; 84100; 84302; 84443; 84478; 84484; 85007; 85018; 85025; 85027; 85049-TC; 85379; 85384; 85610-TC; 85730-TC; 86038; 86301; 86304; 86376; 86708; 86803; 86886; 86900; 86901; 86920; 87040-TC; 87070-TC; 87081; 87186-TC; 87205-TC; 87230-TC; 88305; 88312; 88313; 89055; 90935; 90937; 92950; 93005; 93306; 93970; 94002; 94003; 94640; 96365; 96367; 96375; 99285; A9539; A9540; C9113; G0378; J0171; J0610; J0692; J1200; J1644; J1815; J1940; J1956; J2020; J2185; J2270; J2370; J2543; J2704; J2765; J3370; J3475; J3480; J3490; J7050; J7060; P9021; P9034; P9046; Q0162; Q9964; U0003